=== PATIENT | female | born 1930 | race Two or more races ===

== ENCOUNTER 2017-05-23 15:54 | Inpatient (IN) | payer MEDICARE, OTHER ==
[~2017-05-23] VITALS: Ht 154.9 cm; Wt 73.5 kg
[2017-05-23] MEDS ORDERED: ONDANSETRON 4 MG INJ IV STA (15:56)
[2017-05-23] MEDS ORDERED: morphine 4 MG/ML VIAL IV STA (15:56)
--- NOTE | 2017-05-23 16:33 | RADRPT ---
PROCEDURE: XR Wrist. CLINICAL INDICATION: Fall. Pain and deformity TECHNIQUE: AP, lateral and oblique views of the right wrist were performed. COMPARISON: No prior studies are available for comparison. FINDINGS: Comminuted fracture through the distal radial diaphysis and epiphysis is present with impaction and posterior displacement of the fracture fragments as well as suspected intra-articular extension into the radiocarpal joint. Additional displaced fracture of the distal ulna metaphysis is present, the ulna head anterior to the distal ulnar shaft. The carpal bones appear grossly intact. The bones appe ar well mineralized. Diffuse soft tissue swelling is seen. No radiopaque foreign body is evident. . RPTAT:HJJR IMPRESSION: Acute, closed, comminuted, displaced and impacted distal radius and ulna fractures of the right wris t with likely intra-articular extension into the radiocarpal joint and severe soft tissue swelling. Physician Cinthia Date Time Electronically viewed and signed by Physician Cinthia on 05/23/2017 16:33 /
[2017-05-23] MEDS ORDERED: GABA300C16 PO (16:45)
[2017-05-23] MEDS ORDERED: LORA0.5T PO (16:45)
[2017-05-23] MEDS ORDERED: TRAM-40 PO (16:46)
[2017-05-23] MEDS ORDERED: TIZA2TAB PO (16:47)
[2017-05-23] MEDS ORDERED: LOSA50TA6 PO (16:47)
[2017-05-23] MEDS ORDERED: PANT20TA3 PO (16:48)
[2017-05-23] MEDS ORDERED: ATOR10TA65 PO (16:48)
[2017-05-23] MEDS ORDERED: DULO30CA47 PO (16:49)
[2017-05-23] MEDS ORDERED: MIRT7.5T8 PO (16:49)
[2017-05-23] MEDS ORDERED: KETAMINE 500 MG INJ ONE (18:27)
[2017-05-23] MEDS ORDERED: PROPOFOL 20 ML ONE (18:28)
[2017-05-23] MEDS ORDERED: SOD CHLORIDE 0.9% 500 ML IV STA (18:34)
[2017-05-23] MEDS ORDERED: PROPOFOL 200 MG INJ IV ONE (19:00)
[2017-05-23] MEDS ORDERED: KETAMINE 500 MG INJ IV ONE (19:00)
[2017-05-23] MEDS ORDERED: morphine 10 MG INJ IV ONE (19:00)
[2017-05-23 19:13] LABS: BASOPHILS % 0.3 % (0.0-2.0); HEMOGLOBIN 13.7 g/dl (12.0-16.0); LYMPHOCYTES # 1.5 10^3/ul (0.8-2.9); LYMPHOCYTES % 22.9 % (15.0-51.0); MEAN CORPUSCULAR HEMOGLOBIN 31.8 pg (29.0-33.0); MEAN CORPUSCULAR HGB CONC 32.6 g/dl (32.0-37.0); MEAN CORPUSCULAR VOLUME 97.4 fl (82.0-101.0); MEAN PLATELET VOLUME 10.6 fl (7.4-10.4); MONOCYTE # 0.6 10^3/ul (0.3-0.9); MONOCYTES % 9.4 % (0.0-11.0); NEUTROPHIL # 4.4 10^3/ul (1.6-7.5); NEUTROPHILS % 66.1 % (39.0-77.0); PLATELET COUNT 240 10^3/UL (140-415); RED BLOOD COUNT 4.31 10^6/ul (4.20-5.40); WHITE BLOOD COUNT 6.7 10^3/ul (4.8-10.8)
[2017-05-23] MEDS ORDERED: CEFAZOLIN 1 GM/50 ML (PMX) 50 ML IVPB SCH ×2 (19:30→21:00)
[2017-05-23 19:35] LABS: CALCIUM 10.2 mg/dl (8.4-10.2); CREATININE 1.12 mg/dl (0.44-1.00); POTASSIUM 4.1 mmol/L (3.5-5.1)
[2017-05-23 20:00] VITALS: TEMP 98.9
--- NOTE | 2017-05-23 20:00 | RADRPT ---
PROCEDURE: XR LEFT WRIST. CLINICAL INDICATION: Post reduction left wrist. TECHNIQUE: Three views of the left wrist were obtained. COMPARISON: 05/23/2017. FINDINGS: There has been a marked improvement in alignment of the comminuted intra-articular distal radius and ulnar fractures. There is a scapholunate diastasis likely indicating ligament tear. The bones are o steoporotic. IMPRESSION: 1. Marked improvement in alignment of the distal radius and ulnar fractures. 2. Scapholunate diastasis likely indicating ligament tear. RPTAT: XX .Collin Jimenez MD, MD Date Time Electronically viewed and signed by .Collin Jimenez MD, MD on 05/23/2017 19:59 .T/
[2017-05-23] MEDS ORDERED: ONDANSETRON 4 MG INJ IV PRN ×2 (20:30→21:00)
[2017-05-23] MEDS ORDERED: ACETAMINOPHEN 325 MG TAB PO PRN (20:30)
[2017-05-23] MEDS: DEXTROSE 5%-0.45% NACL 1,000 ML IV SCH (20:32)
--- NOTE | 2017-05-23 20:41 | ERD ---
ER Documentation Chief Complaint Chief Complaint bib ambulance for complaints of right wrist pain s/p fall HPI Elderly female brought in by ambulance after she fell at home when she lost her footing and felt unsteady on her feet. She has lacerations to her right wrist and left forearm with deformity and significant severe pain to her right wrist. Denies having any chest pain or shortness of breath prior to the fall. Does not have pain in any other part of her body. Not hit her head or lose consciousness. ROS All systems reviewed and are negative except as per history of present illness. Medications Home Meds Reported Medications Duloxetine Hcl* (Duloxetine Hcl*) 30 Mg Capsule.dr, 30 MG PO DAILY, #30 CAP 05/23/17 Mirtazapine* (Mirtazapine*) 7.5 Mg Tablet, 7.5 MG PO HS, TAB 05/23/17 Pantoprazole* (Pantoprazole*) 20 Mg Tablet.dr, 20 MG PO DAILY, TAB 05/23/17 Atorvastatin Calcium (Atorvastatin Calcium) 10 Mg Tablet, 10 MG PO QHS, #30 TAB 05/23/17 Tizanidine Hcl* (Tizanidine Hcl*) 2 Mg Tablet, 2 MG PO DAILY Y for SPASTICITY, TAB 05/23/17 Losartan Potassium* (Losartan Potassium*) 50 Mg Tablet, 50 MG PO DAILY, TAB 05/23/17 Tramadol Hcl* (Ultram*) 50 Mg Tablet, 50 MG PO Q6H Y for PAIN, TAB 05/23/17 Gabapentin* (Gabapentin*) 300 Mg Capsule, 300 MG PO DAILY, #60 CAP 05/23/17 Lorazepam* (Lorazepam*) 0.5 Mg Tablet, 0.5 MG PO HS Y for ANXIETY, TAB 05/23/17 Allergies Allergies: Coded Allergies: No Known Allergy (Unverified , 05/23/17) PMhx/Soc Hx Cardiac Disorders: Yes (HTN) Hx Alcohol Use: No Hx Substance Use: No Hx Tobacco Use: No Smoking Status: Never smoker Physical Exam Vitals Vital Signs Date Time Temp Pulse Resp B/P Pulse Ox O2 Delivery O2 Flow Rate FiO2 05/23/17 18:18 99.2 91 15 133/112 96 Room Air 05/23/17 16:08 98.0 96 15 204/102 92 Physical Exam Const: [] Moderate distress Head: Atraumatic Eyes: Normal Conjunctiva ENT: Normal External Ears, Nose and Mouth. Neck: Full range of motion..~ No meningismus. Resp: Clear to auscultation bilaterally Cardio: Regular rate and rhythm, no murmurs Abd: Soft, non tender, non distended. Normal bowel sounds Skin: No petechiae or rashes Back: No midline or flank tenderness Ext: No cyanosis. Right wrist with significant deformity and volar wrist swelling with 2 small lacerations, the more medial laceration does have some active bleeding. The more lateral appears more of his skin tear. She also has a skin tear on her left forearm without any joint pain or bony tenderness of that arm. She has good capillary refill of her fingers and good motor function on both arms. Musculoskeletal survey is negative. Distal foot pulses intact as well Neur: Awake and alert oriented 3, no focal deficits Psych: Normal Mood and Affect Result Diagram: 05/23/17183205/23/171832 Results 24 hrs Laboratory Tests Test 05/23/17 18:33 White Blood Count 6.710^3/ul Red Blood Count 4.3110^6/ul Hemoglobin 13.7g/dl Hematocrit 42.0% Mean Corpuscular Volume 97.4fl Mean Corpuscular Hemoglobin 31.8pg Mean Corpuscular Hemoglobin Concent 32.6g/dl Red Cell Distribution Width 13.0% Platelet Count 01118^3/UL Mean Platelet Volume 10.6fl Neutrophils % 66.1% Lymphocytes % 22.9% Monocytes % 9.4% Eosinophils % 0.0% Basophils % 0.3% Nucleated Red Blood Cells % 0.0/100WBC Neutrophils # 4.410^3/ul Lymphocytes # 1.510^3/ul Monocytes # 0.610^3/ul Eosinophils # 0.010^3/ul Basophils # 0.010^3/ul Nucleated Red Blood Cells # 0.010^3/ul Sodium Level 143mmol/L Potassium Level 4.1mmol/L Chloride Level 106mmol/L Carbon Dioxide Level 26mmol/L Anion Gap 15 Blood Urea Nitrogen 17mg/dl Creatinine 1.12mg/dl Glucose Level 113mg/dl Calcium Level 10.2mg/dl Current Medications Medications (Trade) Dose Ordered Sig/Karel Route PRN Reason Start Time Stop Time Status Last Admin Dose Admin Morphine Sulfate (morphine) 4 mg ONCE STAT IV 05/23/17 15:56 05/23/17 16:00 DC 05/23/17 16:27 Ondansetron HCl (Zofran Inj) 4 mg ONCE STAT IV 05/23/17 15:56 05/23/17 16:00 DC 05/23/17 16:27 Ketamine HCl 500 mg 500 mg STK-MED ONCE .ROUTE 05/23/17 18:27 05/23/17 18:28 DC Propofol (Diprivan) 20 ml @ ud STK-MED ONCE .ROUTE 05/23/17 18:28 05/23/17 18:29 DC Propofol (Diprivan) 80 mg ONCE ONCE IV 05/23/17 19:00 05/23/17 19:01 DC 05/23/17 19:23 Ketamine HCl (Ketalar) 34 mg ONCE ONCE IV 05/23/17 19:00 05/23/17 19:01 DC 05/23/17 19:23 Morphine Sulfate 6 mg 6 mg ONCE ONCE IV 05/23/17 19:00 05/23/17 19:01 DC 05/23/17 19:23 Sodium Chloride 500 ml @ 500 mls/hr Q1H STAT IV 05/23/17 18:34 05/23/17 19:33 DC 05/23/17 19:23 Cefazolin Sodium (Ancef 1 Gm/50 ml (Pmx)) 50 ml @ 100 mls/hr ONCE IVPB 05/23/17 19:30 05/23/17 19:59 DC Procedures/MDM Technically open fracture of right wrist. Reduced in ER by myself. Patient was initially given a formal grams of morphine for pain. She had significant return of pain shortly after and was given 6 mg of morphine as well as Zofran. Was given 500 cc of IV fluid. Preoperatively laboratories were obtained. Urine is still pending she may have infection. She was given a gram of Ancef. Pain is improved after reduction. She does have signs renal insufficiency. She is being admitted to , who I spoke with. I also spoke with Dr. Lisa who will see the patient on consult. Moderate sedation note: Patient was given 40 mg of ketamine and 40 mg of propofol. This provided moderate sedation with the patient was awake but had no pain response to manipulation of her right wrist. She was monitored on entitled CO2, respiratory therapy was present at bedside, pulse ox. She had no changes in her vital signs and emerged well with no complications. Fracture reduction note, right distal radius and ulna fracture: Billet Sawyer held elbow while traction was placed by me by gripping the distal right wrist exaggerating the fracture in the dorsal direction and then pulling up around providing linear traction. Patient was then splinted while I held traction. Traction x-ray was performed prior to the initiation of splinting and showed greatly improved alignment. Patient taught the procedure well with no complications. She had good motor function and sensation after the procedure, Splint application note: Sugar tong splint was applied using fiberglass. Maintain traction more the ER hazmat technician placed the splint. Patient taught the procedure well with no complications. There is good capillary refill and the patient had motor function of her fingers after the procedure no complication Right wrist x-ray interpretation: Fracture of distal radius and ulna with significant shortening intra-articular involvement. Significant soft tissue swelling as well. Departure Diagnosis: Primary Impression: Fracture of distal radius and ulna Additional Impressions: Lacerations of multiple sites of right arm Laceration of left forearm Condition: Stable SAMY UMAÑA DO May 23, 2017 20:41
[2017-05-23] MEDS ORDERED: BISACODYL 10 MG SUPP PR PRN (21:00)
[2017-05-23] MEDS ORDERED: NACL 0.9% 3 ML SYG IV SCH (21:00)
[2017-05-23] MEDS ORDERED: TIZANIDINE 2 MG TAB PO PRN (21:00)
[2017-05-23] MEDS ORDERED: morphine 2 MG INJ IV PRN (21:00)
[2017-05-23] MEDS: CALCIUM/VITAMIN D (500/200) TAB GTB SCH (21:00)
[2017-05-23] MEDS ORDERED: traMADol 50 MG TAB PO PRN (21:00)
[2017-05-23] MEDS ORDERED: DOCUSATE SODIUM 100 MG CAP PO PRN (21:00)
[2017-05-23] MEDS ORDERED: MAGNESIUM HYDROXIDE 30ML CUP PO PRN (21:00)
--- NOTE | 2017-05-23 21:22 | HP ---
Date/Time of Note Date/Time of Note DATE: 05/23/17 TIME: 21:15 Assessment/Plan VTE Prophylaxis VTE Prophylaxis Intervention: ambulation Lines/Catheters IV Catheter Type (from Nrsg): Peripheral IV Central line still needed: No Urinary Cath still in place: No Reason Cath still needed: other (indicate) (pre-op for open right wrist fracture) Assessment/Plan Problems: (1) Fracture of distal radius and ulna Status: Acute Comment: Pain management IV fluid for hydration since she is NPO for now. Fall and aspiration precaution. Ancef given since it is open wound with fracture She is low to moderate risk for cardiovascular event under anesthesia for ORIF for open right wrist fracture. Dr. Mancera is orthopedic unit control clerk Qualifiers: Encounter type: initial encounter Fracture type: open Open fracture type : open type I or II Laterality: right Qualified Code: S52.501B - Type I or II open fracture of distal end of right radius with ulna, initial encounter (2) Open fracture of right wrist Status: Acute Comment: See management as mentioned as above. Qualifiers: Encounter type: initial encounter Qualified Code: S62.101B - Open fracture of right wrist, initial encounter (3) Lacerations of multiple sites of right arm Status: Acute Comment: wound care consultation if indicated after surgery Qualifiers: Encounter type: initial encounter Qualified Code: S41.111A - Laceration of multiple sites of right upper extremity, initial encounter (4) Status post fall Status: Acute Comment: Fall precaution PT evaluation and treatment. case management for discharge planned social service for home safety (5) Fall with injury Status: Acute Comment: Neurontin /Zanaflex held due to drug induced sleepiness and out her at risk of fall. Qualifiers: Encounter type: initial encounter Qualified Code: W19.XXXA - Fall with injury, initial encounter (6) Depressed affect Status: Chronic Comment: Prozac and Remeron to be continued. (7) GERD (gastroesophageal reflux disease) Status: Chronic Comment: Protonix held but Pepcid given (8) HTN (hypertension) Status: Chronic Comment: Losartan resumed and hydralazine given if SBP>160 or DBP>110 Qualifiers: Hypertension type: essential hypertension Qualified Code: I10 - Essential hypertension (9) Hyperlipidemia Status: Chronic Comment: Lipitor to be continued (10) Peripheral neuropathy Status: Chronic Comment: Kelso give for moderate pain. Fall precaution ambulate with assistance. PT treatment for OA knee pain Qualifiers: Peripheral neuropathy type: polyneuropathy, other Qualified Code: G62.89 - Other polyneuropathy (11) Anxiety Status: Chronic Comment: Ativan given if indicated. (12) Insomnia Status: Chronic Comment: Ativan resumed Qualifiers: Insomnia type: primary Qualified Code: F51.01 - Primary insomnia Cont'd Hospitalization Reason: Open right colles fracture requiring ORIF by Dr. Mancera HPI/ROS Admit Date/Time Admit Date/Time 05/23/2017 Hx of Present Illness This is a 86 years old Greek elderly female brought in by ambulance after she fell at home when she lost her footing and felt unsteady on her feet. She has lacerations to her right wrist and left forearm with deformity and significant severe pain to her right wrist. The pain was 10/10 in intensity. She has limitation of range of motion of right wrist due to Colles fracture . No chest pain nor short of breath. No fever nor chill. No headache .No dizziness and lightheadedness prior to the fall. She does not have pain in any other part of her body except right wrist area. Not hit her head or lose consciousness. ROS Constitutional: No chills, No diaphoresis, No disoriented, No fatigue, No febrile, No improved, No nausea, No no complaints, No other, No poor po, No weight change Eyes: No discharge, No no complaints, No other, No pain, No redness, No visual change ENT: No bleeding, No congestion, No discharge, No dysphagia, No no complaints, No other, No pain, No sore throat Respiratory: No cough, No no complaints, No other, No pain, No pleuritic pain, No shortness of breath, No sputum, No wheezing Cardiovascular: No chest pain, No edema, No lightheadedness, No no complaints, No orthopenea, No other, No palpitations, No paroxysmal nocturnal dyspnea Gastrointestinal: No blood, No constipation, No decreased appetite, No diarrhea , No flatus, No nausea, No no complaints, No other, No pain, No passing stool, No vomiting Genitourinary: No bleeding, No discharge, No dysuria, No flank pain, No hematuria, No no complaints, No other Musculoskeletal: bone/joint pain (right wrist pain/right wirst swollen), swelling, No back pain, No neck pain, No other, No restricted range of motion Skin: laceration (ans open wound over right wirst area), No bruising, No erythema, No no complaints, No other, No pruritis, No rash, No skin lesions Neurologic: No confusion, No dizziness, No focal-weakness, No headache, No no complaints, No other, No seizure, No syncope Endocrine: No dry skin, No no complaints, No other, No polydypsia, No polyuria , No temp intolerance, No weight change Lymphatic: No adenopathy, No lymphadema, No no complaints, No other, No tender nodes Psychological: No anxiety, No confusion, No depression, No nl mood/affect, No no complaints, No other, No suicidal PMH/Family/Social Past Medical History Medical History: GERD, high cholesterol, hypertension, hypothyroid, other (OA knees) Past Surgical History Past Surgical Hx: no surgical history Family History Significant Family History: no pertinent family hx Social History Alcohol Use: none Smoking Status: Never smoker Drug Use: none Exam/Review of Systems Vital Signs Vitals Vital Signs Date Time Temp Pulse Resp B/P Pulse Ox O2 Delivery O2 Flow Rate FiO2 05/23/17 18:18 99.2 91 15 133/112 96 Room Air Exam Constitutional: alert, oriented, well developed, No distress, No frail, No non-verbal, No other Psych: nl mood/affect, no complaints, No anxiety, No confusion, No depression, No other, No suicidal Head: atraumatic, normocephalic, No hematomas, No lacerations, No other Eyes: EOMI, PERRL, nl conjunctiva, nl lids, nl sclera, No fundi, disc, No icteric, No other ENMT: nl external ears & nose, nl lips & teeth, nl nasal mucosa & septum, No intubated, No mucosa pink and moist, No other, No tympanic membranes Neck: non-tender, supple, No bruits, No jvd, No masses, No nuchal rigidity, No other, No thyromegaly Respiratory: clear to auscultation, normal air movement, No congested cough, No crackles/rales, No diminished breath sounds, No intercostal retraction, No labored breathing, No other, No respirations, No tactile fremitus, No wheezing Cardiovascular: nl pulses, regular rate and rhythm, No S3, No S4, No bruits, No diastolic murmur, No edema, No gallop, No irregular rhythm, No jugular venous distention (JVD), No murmurs/extra sounds, No other, No rub, No systolic murmur Gastrointestinal: nl liver, spleen, non-tender, soft, No ascites, No bowel sounds, No distended, No firm, No hepatomegaly, No mass , No other, No rebound or guarding, No splenomegaly, No surgical scars, No tender Musculoskeletal: joint tenderness (over right wrist area S/P closed reduction at ER by Dr. Orozco), swelling (of right wrist joint) Neurological: TYPEWRITER ASSEMBLY AND PARTS INSPECTOR II-XII intact, nl mental status, nl speech, No DTR's symmetric, No confused, No focal weakness, No lethargic, No nl strength, No numbness, No other, No reflexes, No unresponsive Skin: nl turgor, rash or lesions, No diaphoresis, No ecchymosis, No laceration, No other, No puncture Lymph: No enlarged, No nl lymph nodes, No nontender, No other Labs Result Diagram: 05/23/17183205/23/171832 Medications Medications Current Medications Atorvastatin Calcium (Lipitor) 10 mg QHS PO ; Start 05/23/17 at 21:00; Status UNV Duloxetine HCl (Cymbalta) 30 mg DAILY PO ; Start 05/24/17 at 09:00; Status UNV Lorazepam (Ativan) 0.5 mg HS PRN PO ANXIETY; Start 05/23/17 at 21:00 Losartan Potassium (Cozaar) 50 mg DAILY PO ; Start 05/24/17 at 09:00; Status UNV Mirtazapine (Remeron) 7.5 mg HS PO ; Start 05/23/17 at 21:00; Status UNV Pantoprazole Sodium 20 mg 20 mg DAILY PO ; Start 05/24/17 at 09:00; Status UNV Dextrose/Sodium Chloride (D5-1/2ns) 1,000 ml @ 80 mls/hr G84H50G IV ; Start at 20:32 Ondansetron HCl (Zofran Inj) 4 mg Q6H PRN IV NAUSEA AND/OR VOMITING; Start 05/23/17 at 21:00 Acetaminophen/ Hydrocodone Bitart (Kelso (5/325)) 1 tab Q6H PRN PO MODERATE PAIN LEVEL 4-6; Start 05/23/17 at 21:00 Docusate Sodium (Colace) 100 mg Q12H PRN PO CONSTIPATION; Start 05/23/17 at 21: 00; Status UNV Magnesium Hydroxide (Milk Of Mag) 30 ml DAILY PRN PO CONSTIPATION; Start at 21:00; Status UNV Bisacodyl (Dulcolax Supp) 10 mg DAILY PRN W[place] CONSTIPATION; Start 05/23/17 at 21 :00 Famotidine (Pepcid Iv) 20 mg DAILY IV ; Start 05/23/17 at 21:00 Calcium/Vitamin D (Oyster Shell/ Vit-D (500/200)) 1 tab BID GTB ; Start at 21:00; Status UNV Morphine Sulfate 1 mg 1 mg Q4H PRN IV SEVERE PAIN LEVEL 7-10; Start 05/23/17 at 21:00 Cefazolin Sodium (Ancef 1 Gm/50 ml (Pmx)) 50 ml @ 100 mls/hr Q12 IVPB ; Start 05/23/17 at 21:00 Copies To: CC: ANGEL LUIS MANCERA MD, NARUCHON MD May 23, 2017 21:22
[2017-05-23] MEDS: ATORVASTATIN 10 MG TAB PO SCH (21:56)
[2017-05-23] MEDS: MIRTAZAPINE 15 MG TAB PO SCH (21:56)
[2017-05-23] MEDS: FAMOTIDINE 20 MG INJ IV SCH (21:59)
[2017-05-23] MEDS: HYDROCODONE/APAP (5/325) TAB PO PRN (22:00)
[2017-05-23 22:46] LABS: INR 1.06; PROTIME 13.9 Sec (11.9-14.9); PT RATIO 1.1
[2017-05-23 22:47] LABS: PARTIAL THROMBOPLASTIN TIME 33.5 Sec (25.0-35.0)
[2017-05-23 23:05] VITALS: BP 147/88; PULSE 92; RESP 18; Ht 154.9 cm; Wt 73.5 kg
[2017-05-23 23:12] LABS: ADD UMIC YES; UR ASCORBIC ACID 20 mg/dL (NEGATIVE); UR BILIRUBIN (Dip) NEGATIVE (NEGATIVE); UR BLOOD (Dip) 2+ mg/dL (NEGATIVE); UR CLARITY CLEAR (CLEAR); UR COLOR YELLOW (YELLOW); UR GLUCOSE (Dip) NEGATIVE (NEGATIVE); UR KETONES (Dip) TRACE mg/dL (NEGATIVE); UR LEUKOCYTE ESTERASE (Dip) NEGATIVE Leu/ul (NEGATIVE); UR NITRITE (Dip) NEGATIVE (NEGATIVE); UR RBC 30 /HPF (0-5); UR SPECIFIC GRAVITY (Dip) 1.038 (1.003-1.030); UR SQUAMOUS EPITHELIAL CELL FEW /HPF (FEW); UR TOTAL PROTEIN (Dip) 1+ mg/dl (NEGATIVE); UR UROBILINOGEN (Dip) NEGATIVE (NEGATIVE)
[2017-05-23] MEDS: LORAZEPAM 0.5 MG TAB PO PRN (23:42)
[2017-05-24] VITALS (7 sets, daily range): BP systolic 136–196; BP diastolic 70–92; PULSE 89–101; RESP 16–18
[2017-05-24 06:23] LABS: BASOPHILS % 0.2 % (0.0-2.0); HEMATOCRIT 39.1 % (37.0-47.0); HEMOGLOBIN 12.6 g/dl (12.0-16.0); MEAN CORPUSCULAR HEMOGLOBIN 31.7 pg (29.0-33.0); MEAN CORPUSCULAR HGB CONC 32.2 g/dl (32.0-37.0); MEAN CORPUSCULAR VOLUME 98.5 fl (82.0-101.0); MEAN PLATELET VOLUME 11.4 fl (7.4-10.4); MONOCYTE # 0.4 10^3/ul (0.3-0.9); MONOCYTES % 4.4 % (0.0-11.0); NEUTROPHIL # 7.5 10^3/ul (1.6-7.5); NEUTROPHILS % 83.8 % (39.0-77.0); PLATELET COUNT 207 10^3/UL (140-415); RED BLOOD COUNT 3.97 10^6/ul (4.20-5.40); RED CELL DISTRIBUTION WIDTH 12.8 % (11.5-14.5); WHITE BLOOD COUNT 8.9 10^3/ul (4.8-10.8)
[2017-05-24 06:43] LABS: POSITIVE DIFF @See below
[2017-05-24 07:00] LABS: T3 UPTAKE 31.2 % (23.5-40.5)
[2017-05-24] MEDS: DULOXETINE 30 MG CAP DR PO SCH (08:53)
[2017-05-24] MEDS: FAMOTIDINE 20 MG INJ IV SCH (08:54)
[2017-05-24] MEDS: CALCIUM/VITAMIN D (500/200) TAB GTB SCH ×2 (08:55→20:46)
[2017-05-24] MEDS: CEFTRIAXONE 1 GM/50 ML (PMX) 50 ML IVPB SCH (08:59)
[2017-05-24] MEDS ORDERED: GABAPENTIN 300 MG CAP PO SCH (09:00)
[2017-05-24] MEDS ORDERED: hydrALAzine 20 MG INJ IV PRN (09:00)
[2017-05-24] MEDS ORDERED: LOSARTAN 50 MG TAB PO SCH (09:00)
[2017-05-24] MEDS ORDERED: PANTOPRAZOLE SODIUM 20 MG TABEC PO SCH (09:00)
[2017-05-24] MEDS ORDERED: SOD CHLORIDE 0.9% 250 ML IV* ONE (09:39)
--- NOTE | 2017-05-24 10:01 | PN ---
Date/Time of Note Date/Time of Note DATE: 05/24/17 TIME: 09:47 Assessment/Plan VTE Prophylaxis VTE Prophylaxis Intervention: ambulation, anti-embolic stocking Lines/Catheters IV Catheter Type (from Nrsg): Peripheral IV Central line still needed: No Urinary Cath still in place: No Assessment/Plan Problems: (1) Open fracture of right wrist Status: Acute Comment: Dr. Lisa is going to see the patient today and tentative for ORIF tomorrow per Dr. Lisa. I appreciated Dr. Lisa 's service. Pain management as needed. NPO after midnight. Type and screen for 2 Unit PRBCs before surgery tomorrow. Qualifiers: Encounter type: initial encounter Qualified Code: S62.101B - Open fracture of right wrist, initial encounter (2) Fall with injury Status: Acute Comment: Fall precaution Qualifiers: Encounter type: subsequent encounter Qualified Code: W19.XXXD - Fall with injury, subsequent encounter (3) UTI (urinary tract infection) Status: Acute Comment: Urine culture result pending Rocephin given for simple UTI. Ancef stopped. Delayed Temple catheter insertion till tomorrow. Qualifiers: Urinary tract infection type: acute cystitis Hematuria presence: with hematuria Qualified Code: N30.01 - Acute cystitis with hematuria (4) Dehydration Status: Acute Comment: Encourage oral fluid Increase IV fluid to 100 cc/hr. She can eat low salt diet today and the NPO after midnight except meds and sip of water. AM CMP repeated (5) HTN (hypertension) Status: Chronic Comment: Losartan to be continued . Toprol XL to prevent cardiac event as pre op medication. IV Hydralazine given for SBP>160 or DBP>110 Qualifiers: Hypertension type: essential hypertension Qualified Code: I10 - Essential hypertension (6) Hyperlipidemia Status: Chronic Comment: Lipitor to be continued (7) GERD (gastroesophageal reflux disease) Status: Chronic Comment: IV Pepcid since she is going for surgery and then after surgery,we can change back to oral Protonix. (8) Peripheral neuropathy Status: Chronic Comment: Supportive care. Neurontin discontinued due to altered mental status and put her at risk of fall Qualifiers: Peripheral neuropathy type: polyneuropathy, other Qualified Code: G62.89 - Other polyneuropathy (9) Depressed affect Status: Chronic Comment: Prozac to be continued. (10) Anxiety Status: Chronic Comment: Ativan as needed (11) Insomnia Status: Chronic Comment: Ativan as home med given. Qualifiers: Insomnia type: primary Qualified Code: F51.01 - Primary insomnia Cont'd Hospitalization Reason: She will og for ORTIF tomorrow .She is medically clear for ORIF . Subjective 24 Hr Interval Summary Free Text/Dictation She has tha doing better. No active right wrist pain. She denied any fever nor chill. No chest pain nor short f breath. No urgency but frequency. No dizziness or lightheadedness when walking to the restroom. No productive cough . No diarrhea or constipation. No headache or blurred vision. Constitutional: improved, no complaints, No chills, No diaphoresis, No disoriented, No febrile, No other, No poor po, No requiring IVF, No requiring O2 Eyes: No discharge, No no complaints, No other, No pain, No redness, No visual change ENT: No bleeding, No congestion, No discharge, No dysphagia, No no complaints, No other, No pain, No sore throat Respiratory: No cough, No no complaints, No other, No pain, No pleuritic pain, No shortness of breath, No sputum, No wheezing Cardiovascular: No chest pain, No edema, No lightheadedness, No no complaints, No orthopenea, No other, No palpitations, No paroxysmal nocturnal dyspnea Gastrointestinal: No blood, No constipation, No decreased appetite, No diarrhea , No flatus, No nausea, No no complaints, No other, No pain, No passing stool, No vomiting Genitourinary: No bleeding, No discharge, No dysuria, No flank pain, No hematuria, No no complaints, No other Musculoskeletal: No back pain, No bone/joint pain, No neck pain, No no complaints, No other, No restricted range of motion, No swelling Skin: No bruising, No erythema, No laceration, No no complaints, No other, No pruritis, No rash, No skin lesions Neurologic: No confusion, No dizziness, No focal-weakness, No headache, No no complaints, No other, No seizure, No syncope Endocrine: No dry skin, No no complaints, No other, No polydypsia, No polyuria , No temp intolerance Lymphatic: No adenopathy, No lymphadema, No no complaints, No other, No tender nodes Psychological: No anxiety, No confusion, No depression, No nl mood/affect, No no complaints, No other, No suicidal Exam/Review of Systems Vital Signs Vitals Vital Signs Date Time Temp Pulse Resp B/P Pulse Ox O2 Delivery O2 Flow Rate FiO2 05/24/17 08:39 99.1 92 16 164/83 92 Room Air 05/23/17 19:20 4.0 33 Intake and Output 05/23/17 05/23/17 05/24/17 15:00 23:00 07:00 Intake Total 550 ml 680 ml Balance 550 ml 680 ml Exam Constitutional: alert, oriented, well developed Psych: nl mood/affect, no complaints Head: atraumatic, normocephalic Eyes: EOMI, PERRL, nl conjunctiva, nl lids, nl sclera ENMT: nl external ears & nose, nl lips & teeth, other (dry mouth and oral musoca) Neck: bruits, jvd, masses, non-tender, nuchal rigidity, other, supple, thyromegaly Respiratory: clear to auscultation, normal air movement, No congested cough, No crackles/rales, No diminished breath sounds, No intercostal retraction, No labored breathing, No other, No respirations, No tactile fremitus, No wheezing Cardiovascular: nl pulses, regular rate and rhythm, No S3, No S4, No bruits, No diastolic murmur, No edema, No gallop, No irregular rhythm, No jugular venous distention (JVD), No murmurs/extra sounds, No other, No rub, No systolic murmur Gastrointestinal: nl liver, spleen, non-tender, soft, No ascites, No bowel sounds, No distended, No firm, No hepatomegaly, No mass , No other, No rebound or guarding, No splenomegaly, No surgical scars, No tender Musculoskeletal: swelling (deformity of right distal ulnar and radius but she has cast in place.), No joint tenderness, No muscle tone, No muscle weakness, No nl extremities to inspection, No nl gait and stance, No other, No range of motion, No spine non -tender Results Result Diagram: 05/24/17 0505 05/23/17 2643 Results 24 hrs Laboratory Tests Test 05/23/17 16:33 05/23/17 18:33 05/23/17 22:48 05/24/17 05:05 Prothrombin Time 13.9 Prothrombin Time Ratio 1.1 INR International Normalized Ratio 1.06 Activated Partial Thromboplast Time 33.5 White Blood Count 6.7 8.9 # Red Blood Count 4.31 3.97 L Hemoglobin 13.7 12.6 Hematocrit 42.0 39.1 Mean Corpuscular Volume 97.4 98.5 Mean Corpuscular Hemoglobin 31.8 31.7 Mean Corpuscular Hemoglobin Concent 32.6 32.2 Red Cell Distribution Width 13.0 12.8 Platelet Count 240 207 Mean Platelet Volume 10.6 H 11.4 H Neutrophils % 66.1 83.8 H Lymphocytes % 22.9 11.0 L Monocytes % 9.4 4.4 Eosinophils % 0.0 0.0 Basophils % 0.3 0.2 Nucleated Red Blood Cells % 0.0 0.0 Neutrophils # 4.4 7.5 Lymphocytes # 1.5 1.0 Monocytes # 0.6 0.4 Eosinophils # 0.0 0.0 Basophils # 0.0 0.0 Nucleated Red Blood Cells # 0.0 0.0 Sodium Level 143 Potassium Level 4.1 Chloride Level 106 Carbon Dioxide Level 26 Anion Gap 15 Blood Urea Nitrogen 17 Creatinine 1.12 H Glucose Level 113 Calcium Level 10.2 Urine Color YELLOW Urine Clarity CLEAR Urine pH 5.0 Urine Specific [place] 1.038 H Urine Ketones TRACE A Urine Nitrite NEGATIVE Urine Bilirubin NEGATIVE Urine Urobilinogen NEGATIVE Urine Leukocyte Esterase NEGATIVE Urine Microscopic RBC 30 H Urine Microscopic WBC 4 Urine Squamous Epithelial Cells FEW Urine Hemoglobin 2+ H Urine Glucose NEGATIVE Urine Total Protein 1+ H Magnesium Level 2.0 Free Thyroxine Index 1.62 Thyroxine (T4) 5.2 L Triiodothyronine (T3) Uptake 31.2 Imaging Free Text/Dictation Laboratory Tests Test 05/23/17 16:33 05/23/17 18:33 05/23/17 22:48 05/24/17 05:05 Prothrombin Time 13.9Sec Prothrombin Time Ratio 1.1 INR International Normalized Ratio 1.06 Activated Partial Thromboplast Time 33.5Sec White Blood Count 6.710^3/ul 8.910^3/ul Red Blood Count 4.3110^6/ul 3.9710^6/ul Hemoglobin 13.7g/dl 12.6g/dl Hematocrit 42.0% 39.1% Mean Corpuscular Volume 97.4fl 98.5fl Mean Corpuscular Hemoglobin 31.8pg 31.7pg Mean Corpuscular Hemoglobin Concent 32.6g/dl 32.2g/dl Red Cell Distribution Width 13.0% 12.8% Platelet Count 88032^3/UL 60337^3/UL Mean Platelet Volume 10.6fl 11.4fl Neutrophils % 66.1% 83.8% Lymphocytes % 22.9% 11.0% Monocytes % 9.4% 4.4% Eosinophils % 0.0% 0.0% Basophils % 0.3% 0.2% Nucleated Red Blood Cells % 0.0/100WBC 0.0/100WBC Neutrophils # 4.410^3/ul 7.510^3/ul Lymphocytes # 1.510^3/ul 1.010^3/ul Monocytes # 0.610^3/ul 0.410^3/ul Eosinophils # 0.010^3/ul 0.010^3/ul Basophils # 0.010^3/ul 0.010^3/ul Nucleated Red Blood Cells # 0.010^3/ul 0.010^3/ul Sodium Level 143mmol/L Potassium Level 4.1mmol/L Chloride Level 106mmol/L Carbon Dioxide Level 26mmol/L Anion Gap 15 Blood Urea Nitrogen 17mg/dl Creatinine 1.12mg/dl Glucose Level 113mg/dl Calcium Level 10.2mg/dl Urine Color YELLOW Urine Clarity CLEAR Urine pH 5.0 Urine Specific [place] 1.038 Urine Ketones TRACEmg/dL Urine Nitrite NEGATIVEmg/dL Urine Bilirubin NEGATIVEmg/dL Urine Urobilinogen NEGATIVEmg/dL Urine Leukocyte Esterase NEGATIVELeu/ul Urine Microscopic RBC 30/HPF Urine Microscopic WBC 4/HPF Urine Squamous Epithelial Cells FEW/HPF Urine Hemoglobin 2+mg/dL Urine Glucose NEGATIVEmg/dL Urine Total Protein 1+mg/dl Magnesium Level 2.0mg/dl Free Thyroxine Index 1.62ug/ml Thyroxine (T4) 5.2ug/dl Triiodothyronine (T3) Uptake 31.2% Current Medications Medications (Trade) Dose Ordered Sig/Karel Route PRN Reason Start Time Stop Time Status Last Admin Dose Admin Morphine Sulfate (morphine) 4 mg ONCE STAT IV 05/23/17 15:56 05/23/17 16:00 DC 05/23/17 16:27 4 MG Ondansetron HCl (Zofran Inj) 4 mg ONCE STAT IV 05/23/17 15:56 05/23/17 16:00 DC 05/23/17 16:27 4 MG Ketamine HCl 500 mg 500 mg STK-MED ONCE .ROUTE 05/23/17 18:27 05/23/17 18:28 DC Propofol (Diprivan) 20 ml @ ud STK-MED ONCE .ROUTE 05/23/17 18:28 05/23/17 18:29 DC Propofol (Diprivan) 80 mg ONCE ONCE IV 05/23/17 19:00 05/23/17 19:01 DC 05/23/17 19:23 80 MG Ketamine HCl (Ketalar) 34 mg ONCE ONCE IV 05/23/17 19:00 05/23/17 19:01 DC 05/23/17 19:23 34 MG Morphine Sulfate 6 mg 6 mg ONCE ONCE IV 05/23/17 19:00 05/23/17 19:01 DC 05/23/17 19:23 6 MG Sodium Chloride 500 ml @ 500 mls/hr Q1H STAT IV 05/23/17 18:34 05/23/17 19:33 DC 05/23/17 19:23 500 MLS/HR Cefazolin Sodium (Ancef 1 Gm/50 ml (Pmx)) 50 ml @ 100 mls/hr ONCE IVPB 05/23/17 19:30 05/23/17 19:59 DC Atorvastatin Calcium (Lipitor) 10 mg QHS PO 05/23/17 21:00 05/23/17 21:56 10 MG Duloxetine HCl (Cymbalta) 30 mg DAILY PO 05/24/17 09:00 05/24/17 08:53 30 MG Gabapentin (Neurontin) 300 mg DAILY PO 05/24/17 09:00 05/24/17 09:00 DC Lorazepam (Ativan) 0.5 mg HS PRN PO ANXIETY 05/23/17 21:00 05/23/17 23:42 0.5 MG Losartan Potassium (Cozaar) 50 mg DAILY PO 05/24/17 09:00 05/24/17 08:54 50 MG Mirtazapine (Remeron) 7.5 mg HS PO 05/23/17 21:00 05/23/17 21:56 7.5 MG Pantoprazole Sodium (Protonix) 20 mg DAILY PO 05/24/17 09:00 05/24/17 08:53 20 MG Tizanidine HCl (Zanaflex) 2 mg DAILY PRN PO SPASTICITY 05/23/17 21:00 05/23/17 21:00 DC Tramadol HCl (Ultram) 50 mg Q6H PRN PO PAIN 05/23/17 21:00 05/23/17 21:00 DC Ondansetron HCl (Zofran Inj) 4 mg BRIDGE ORDER PRN IV NAUSEA AND/OR VOMITING 05/23/17 20:30 05/24/17 20:29 Acetaminophen 650 mg 650 mg ER BRIDGE PRN PO MILD PAIN/FEVER 05/23/17 20:30 05/24/17 20:29 Dextrose/Sodium Chloride (D5-1/2ns) 1,000 ml @ 100 mls/hr Q10H IV 05/23/17 20:32 05/23/17 20:32 80 MLS/HR IV Flush (NS 3 ml) 3 ml PER PROTOCOL IV 05/23/17 21:00 Ondansetron HCl (Zofran Inj) 4 mg Q6H PRN IV NAUSEA AND/OR VOMITING 05/23/17 21:00 Acetaminophen/ Hydrocodone Bitart ([place] (5/325)) 1 tab Q6H PRN PO MODERATE PAIN LEVEL 4-6 05/23/17 21:00 05/23/17 22:00 1 TAB Docusate Sodium (Colace) 100 mg Q12H PRN PO CONSTIPATION 05/23/17 21:00 Magnesium Hydroxide (Milk Of Mag) 30 ml DAILY PRN PO CONSTIPATION 05/23/17 21:00 Bisacodyl (Dulcolax Supp) [address] CONSTIPATION 05/23/17 21:00 Famotidine (Pepcid Iv) 20 mg DAILY IV 05/23/17 21:00 05/24/17 08:54 20 MG Calcium/Vitamin D ([place]yster [place]/ Vit-D (500/200)) 1 tab BID GTB 05/23/17 21:00 05/24/17 08:55 1 TAB Morphine Sulfate 1 mg 1 mg Q4H PRN IV SEVERE PAIN LEVEL 7-10 05/23/17 21:00 Cefazolin Sodium (Ancef 1 Gm/50 ml (Pmx)) 50 ml @ 100 mls/hr Q12 IVPB 05/23/17 21:00 05/24/17 08:41 DC 05/23/17 21:36 100 MLS/HR Hydralazine HCl 10 mg 10 mg Q6H PRN IV ELEVATED BLOOD PRESSURE 05/24/17 09:00 Ceftriaxone Sodium 50 ml @ 100 mls/hr Q24H IVPB 05/24/17 09:00 05/24/17 08:59 100 MLS/HR Sodium Chloride (NS) 250 ml @ 0 mls/hr Q0M ONCE IV* 05/24/17 09:39 05/24/17 09:40 UNV Medications Medications Current Medications Atorvastatin Calcium (Lipitor) 10 mg QHS PO Last administered on 05/23/17 21: 56; Admin Dose 10 MG; Start 05/23/17 at 21:00 Duloxetine HCl (Cymbalta) 30 mg DAILY PO Last administered on 05/24/17 08:53; Admin Dose 30 MG; Start 05/24/17 at 09:00 Lorazepam (Ativan) 0.5 mg HS PRN PO ANXIETY Last administered on 05/23/17 23: 42; Admin Dose 0.5 MG; Start 05/23/17 at 21:00 Losartan Potassium (Cozaar) 50 mg DAILY PO Last administered on 05/24/17 08:54 ; Admin Dose 50 MG; Start 05/24/17 at 09:00 Mirtazapine (Remeron) 7.5 mg HS PO Last administered on 05/23/17 21:56; Admin Dose 7.5 MG; Start 05/23/17 at 21:00 Pantoprazole Sodium 20 mg 20 mg DAILY PO Last administered on 05/24/17 08:53; Admin Dose 20 MG; Start 05/24/17 at 09:00 Dextrose/Sodium Chloride (D5-1/2ns) 1,000 ml @ 100 mls/hr Q10H IV Last administered on 05/23/17 20:32; Admin Dose 80 MLS/HR; Start 05/23/17 at 20:32 Ondansetron HCl (Zofran Inj) 4 mg Q6H PRN IV NAUSEA AND/OR VOMITING; Start 05/23/17 at 21:00 Acetaminophen/ Hydrocodone Bitart ([place] (5/325)) 1 tab Q6H PRN PO MODERATE PAIN LEVEL 4-6 Last administered on 05/23/17 22:00; Admin Dose 1 TAB; Start at 21:00 Docusate Sodium (Colace) 100 mg Q12H PRN PO CONSTIPATION; Start 05/23/17 at 21: 00 Magnesium Hydroxide (Milk Of Mag) 30 ml DAILY PRN PO CONSTIPATION; Start at 21:00 Bisacodyl (Dulcolax Supp) [address] CONSTIPATION; Start 05/23/17 at 21 :00 Famotidine (Pepcid Iv) 20 mg DAILY IV Last administered on 05/24/17 08:54; Admin Dose 20 MG; Start 05/23/17 at 21:00 Calcium/Vitamin D ([place]/ Vit-D (500/200)) 1 tab BID GTB Last administered on 05/24/17 08:55; Admin Dose 1 TAB; Start 05/23/17 at 21:00 Morphine Sulfate (morphine) 1 mg Q4H PRN IV SEVERE PAIN LEVEL 7-10; Start 05/23 at 21:00 Hydralazine HCl 10 mg 10 mg Q6H PRN IV ELEVATED BLOOD PRESSURE; Start 05/24/17 at 09:00 Ceftriaxone Sodium 50 ml @ 100 mls/hr Q24H IVPB Last administered on 08:59; Admin Dose 100 MLS/HR; Start 05/24/17 at 09:00 Sodium Chloride (NS) 250 ml @ 0 mls/hr Q0M ONCE IV* ; Start 05/24/17 at 09:39; Stop 05/24/17 at 09:40; Status CLARK MONROE MD May 24, 2017 09:59
[2017-05-24] MEDS: DEXTROSE 5%-0.45% NACL 1,000 ML IV SCH ×2 (10:08→18:44)
[2017-05-24] MEDS ORDERED: LORAZEPAM 0.5 MG TAB PO PRN (10:30)
[2017-05-24] MEDS: METOPROLOL (XL) 25 MG TAB PO SCH (11:59)
[2017-05-24] MEDS: ACETAMINOPHEN 325 MG TAB PO PRN (16:15)
[2017-05-24] MEDS: ATORVASTATIN 10 MG TAB PO SCH (20:46)
[2017-05-24] MEDS: MIRTAZAPINE 15 MG TAB PO SCH (20:47)
[2017-05-25] VITALS (22 sets, daily range): BP systolic 108–189; BP diastolic 51–91; PULSE 93–106; RESP 17–20
[2017-05-25] MEDS: ACETAMINOPHEN 325 MG TAB PO PRN (01:21)
[2017-05-25 05:26] LABS: BASOPHILS % 0.1 % (0.0-2.0); HEMATOCRIT 36.4 % (37.0-47.0); LYMPHOCYTES # 1.5 10^3/ul (0.8-2.9); LYMPHOCYTES % 10.5 % (15.0-51.0); MEAN CORPUSCULAR HEMOGLOBIN 31.7 pg (29.0-33.0); MEAN CORPUSCULAR VOLUME 96.3 fl (82.0-101.0); MEAN PLATELET VOLUME 10.6 fl (7.4-10.4); MONOCYTE # 1.3 10^3/ul (0.3-0.9); MONOCYTES % 9.6 % (0.0-11.0); NEUTROPHILS % 78.9 % (39.0-77.0); PLATELET COUNT 235 10^3/UL (140-415); RED BLOOD COUNT 3.78 10^6/ul (4.20-5.40); RED CELL DISTRIBUTION WIDTH 13.2 % (11.5-14.5); WHITE BLOOD COUNT 13.9 10^3/ul (4.8-10.8)
[2017-05-25 06:30] LABS: ALBUMIN 3.8 g/dl (3.3-4.9); ALBUMIN/GLOBULIN RATIO 1.4; BILIRUBIN,INDIRECT 0.2 mg/dl (0-1.1); BILIRUBIN,TOTAL 0.2 mg/dl (0.2-1.3); CALCIUM 10.2 mg/dl (8.4-10.2); CREATININE 1.04 mg/dl (0.44-1.00); POTASSIUM 4.5 mmol/L (3.5-5.1); TOTAL PROTEIN 6.5 g/dl (6.1-8.1)
[2017-05-25] MEDS: DEXTROSE 5%-0.45% NACL 1,000 ML IV SCH ×3 (07:36→18:25)
--- NOTE | 2017-05-25 08:02 | RADRPT ---
PROCEDURE: XR Lumbar Spine. CLINICAL INDICATION: S/P fall. Low back pain. TECHNIQUE: 5 views of the lumbar spine are available for review COMPARISON: None available FINDINGS: The normal lumbar lordosis is preserved. Alignment is intact. No acute fracture or dislocation is seen. No radiopaque foreign body is identified. The vertebral body heights are all within normal l imits, with the exception of mild to moderate compression of the L4 vertebral body, chronic. In ludy tion, there is evidence of previous vertebroplasty at the L4 level The intervertebral disk heights a re markedly abnormal. Moderate to severe multilevel discogenic disease and disc space narrowing is i dentified at multiple levels throughout the lumbar spine, most severe at the L3-4 and L4-5 levels. The posterior elements are equally remarkable for facet arthropathy at the L4-5 and L5-S1 levels. O n the frontal view, there is normal alignment. Paraspinous soft tissues are grossly unremarkable. A therosclerotic vascular calcifications are present. IMPRESSION: 1. Advance multilevel discogenic disease and disc space narrowing degenerative enthesopathy through out the spine. 2. Moderate compression fracture of the L4 vertebral body, status post vertebroplasty. 3. Significant posterior element facet arthropathy of the lower lumbar spine. 4. Extensive atherosclerotic vascular calcifications of the aortoiliac system. RPTAT: HMJB .Todd Lopez MD, Date Time Electronically viewed and signed by .Todd Lopez MD, on 05/25/2017 08:02 .B/
[2017-05-25] MEDS: DULOXETINE 30 MG CAP DR PO SCH (09:00)
[2017-05-25] MEDS: CALCIUM/VITAMIN D (500/200) TAB GTB SCH ×2 (09:00→20:26)
[2017-05-25] MEDS: METOPROLOL (XL) 25 MG TAB PO SCH (09:00)
[2017-05-25] MEDS: FAMOTIDINE 20 MG INJ IV SCH (09:00)
[2017-05-25] MEDS: CEFTRIAXONE 1 GM/50 ML (PMX) 50 ML IVPB SCH (09:14)
--- NOTE | 2017-05-25 09:45 | PN ---
Date/Time of Note Date/Time of Note DATE: 05/25/17 TIME: 09:34 Assessment/Plan VTE Prophylaxis VTE Prophylaxis Intervention: ambulation, anti-embolic stocking Lines/Catheters IV Catheter Type (from Nrsg): Peripheral IV Urinary Cath still in place: No Reason Cath still needed: urinary retention Assessment/Plan Problems: (1) Open fracture of right wrist Status: Acute Comment: She is going for ORIF today Dr. Lisa is surgeon. Calcium and Vit D daily given for now on. Qualifiers: Encounter type: initial encounter Qualified Code: S62.101B - Open fracture of right wrist, initial encounter (2) Status post fall Status: Acute Comment: Fall precaution (3) Fall with injury Status: Acute Qualifiers: Encounter type: subsequent encounter Qualified Code: W19.XXXD - Fall with injury, subsequent encounter (4) UTI (urinary tract infection) Status: Acute Comment: Urine culture result pending Rocephin given. Qualifiers: Urinary tract infection type: acute cystitis Hematuria presence: with hematuria Qualified Code: N30.01 - Acute cystitis with hematuria (5) Dehydration Status: Resolved Comment: IV fluid given (6) HTN (hypertension) Status: Chronic Comment: Lopressor and losartan given She can be discharged home today or tomorrow Qualifiers: Hypertension type: essential hypertension Qualified Code: I10 - Essential hypertension (7) Insomnia Status: Chronic Comment: Ativan given for sleep. Qualifiers: Insomnia type: primary Qualified Code: F51.01 - Primary insomnia (8) GERD (gastroesophageal reflux disease) Status: Chronic Comment: IV Pepcid (9) Depressed affect Status: Chronic Comment: Prozac and Remeron to be resumed after surgery (10) Anxiety Status: Chronic Comment: Ativan given as needed (11) Peripheral neuropathy Status: Chronic Comment: supportive care Neurontin stopped since it caused the fall injury. Qualifiers: Peripheral neuropathy type: polyneuropathy, other Qualified Code: G62.89 - Other polyneuropathy (12) Hyperlipidemia Status: Chronic Comment: Lipitor resumed after surgery. Qualifiers: Hyperlipidemia type: unspecified Qualified Code: E78.5 - Hyperlipidemia, unspecified hyperlipidemia type Cont'd Hospitalization Reason: She can go home today or tomorrw if she is medically stable after surgery Subjective 24 Hr Interval Summary Free Text/Dictation She has tha doing better. She was sitting on the chair waiting for surgery today .Headache was resolved. She seemed to be calm and happy today. She was not having good sleep but she was not upset about hard bed . No fever nor chill..No active right wrist pain. She denied any fever nor chill. No chest pain nor short f breath. No urgency nor frequency. No dizziness or lightheadedness when walking to the restroom. No productive cough . No diarrhea or constipation. No blurred vision. Constitutional: improved, No chills, No diaphoresis, No disoriented, No febrile, No no complaints, No other, No poor po, No requiring IVF, No requiring O2 Eyes: No discharge, No no complaints, No other, No pain, No redness, No visual change ENT: No bleeding, No congestion, No discharge, No dysphagia, No no complaints, No other, No pain, No sore throat Respiratory: No cough, No no complaints, No other, No pain, No pleuritic pain, No shortness of breath, No sputum, No wheezing Cardiovascular: No chest pain, No edema, No lightheadedness, No no complaints, No orthopenea, No other, No palpitations, No paroxysmal nocturnal dyspnea Gastrointestinal: No blood, No constipation, No decreased appetite, No diarrhea , No flatus, No nausea, No no complaints, No other, No pain, No passing stool, No vomiting Genitourinary: No bleeding, No discharge, No dysuria, No flank pain, No hematuria, No no complaints, No other Musculoskeletal: No back pain, No bone/joint pain, No neck pain, No no complaints, No other, No restricted range of motion, No swelling Skin: No bruising, No erythema, No laceration, No no complaints, No other, No pruritis, No rash, No skin lesions Neurologic: No confusion, No dizziness, No focal-weakness, No headache, No no complaints, No other, No seizure, No syncope Endocrine: No dry skin, No no complaints, No other, No polydypsia, No polyuria , No temp intolerance Lymphatic: No adenopathy, No lymphadema, No no complaints, No other, No tender nodes Psychological: No anxiety, No confusion, No depression, No nl mood/affect, No no complaints, No other, No suicidal Immunologic: No immunodeficiency, No no complaints, No other, No pruritis, No rhinitis, No urticaria Exam/Review of Systems Vital Signs Vitals Vital Signs Date Time Temp Pulse Resp B/P Pulse Ox O2 Delivery O2 Flow Rate FiO2 05/25/17 07:39 98.7 90 20 137/62 96 05/25/17 01:12 Room Air 05/23/17 19:20 4.0 33 Intake and Output 05/24/17 05/24/17 05/25/17 15:00 23:00 07:00 Intake Total 370 ml 1300 ml 300 ml Balance 370 ml 1300 ml 300 ml Exam Constitutional: alert, oriented, well developed, No distress, No frail, No non-verbal, No obese, No other Psych: nl mood/affect, No anxiety, No confusion, No depression, No no complaints, No other, No suicidal Head: atraumatic, normocephalic, No hematomas, No lacerations, No other Eyes: EOMI, nl conjunctiva, nl lids, No PERRL, No fundi, disc, No icteric, No nl sclera, No other ENMT: mucosa pink and moist, nl external ears & nose, nl lips & teeth, nl nasal mucosa & septum, No intubated, No other, No tympanic membranes Neck: non-tender, supple, No bruits, No jvd, No masses, No nuchal rigidity, No other, No thyromegaly Respiratory: clear to auscultation, normal air movement, No congested cough, No crackles/rales, No diminished breath sounds, No intercostal retraction, No labored breathing, No other, No respirations, No tactile fremitus, No wheezing Cardiovascular: nl pulses, regular rate and rhythm, No S3, No S4, No bruits, No diastolic murmur, No edema, No gallop, No irregular rhythm, No jugular venous distention (JVD), No murmurs/extra sounds, No other, No rub, No systolic murmur Gastrointestinal: nl liver, spleen, non-tender, soft, No ascites, No bowel sounds, No distended, No firm, No hepatomegaly, No mass , No other, No rebound or guarding, No splenomegaly, No surgical scars, No tender Musculoskeletal: nl extremities to inspection, nl gait and stance, No joint tenderness, No muscle tone, No muscle weakness, No other, No range of motion, No spine non-tender, No swelling Extremities: normal pulses, other (deformed distal ulnar and radial bones on right arm), No calf tenderness, No clubbing, No cyanosis, No edema, No palpable cord, No pitting pedal edema, No tenderness Neurological: USABILITY ARCHITECT II-XII intact, nl mental status, nl speech, nl strength, No DTR's symmetric, No confused, No focal weakness, No lethargic, No numbness , No other, No reflexes, No unresponsive Skin: No diaphoresis, No ecchymosis, No laceration, No nl turgor, No other, No puncture, No rash or lesions Lymph: nl lymph nodes Results Result Diagram: 05/25/1742205/25/17422 Results 24 hrs Laboratory Tests Test 05/25/17 04:23 White Blood Count 13.9 #H Red Blood Count 3.78 L Hemoglobin 12.0 Hematocrit 36.4 L Mean Corpuscular Volume 96.3 Mean Corpuscular Hemoglobin 31.7 Mean Corpuscular Hemoglobin Concent 33.0 Red Cell Distribution Width 13.2 Platelet Count 235 Mean Platelet Volume 10.6 H Neutrophils % 78.9 H Lymphocytes % 10.5 L Monocytes % 9.6 Eosinophils % 0.0 Basophils % 0.1 Nucleated Red Blood Cells % 0.0 Neutrophils # 11.0 H Lymphocytes # 1.5 Monocytes # 1.3 H Eosinophils # 0.0 Basophils # 0.0 Nucleated Red Blood Cells # 0.0 Sodium Level 143 Potassium Level 4.5 Chloride Level 109 Carbon Dioxide Level 23 Anion Gap 16 Blood Urea Nitrogen 24 H Creatinine 1.04 H Glucose Level 126 Calcium Level 10.2 Total Bilirubin 0.2 Direct Bilirubin 0.00 Indirect Bilirubin 0.2 Aspartate Amino Transf (AST/SGOT) 52 H Alanine Aminotransferase (ALT/SGPT) 38 Alkaline Phosphatase 71 Total Protein 6.5 Albumin 3.8 Globulin 2.70 Albumin/Globulin Ratio 1.40 Imaging Free Text/Dictation ANITA was resolved after hydration. UTI got treated by IV Rocephin. Medications Medications Current Medications Atorvastatin Calcium (Lipitor) 10 mg QHS PO Last administered on 05/24/17 20: 46; Admin Dose 10 MG; Start 05/23/17 at 21:00 Duloxetine HCl (Cymbalta) 30 mg DAILY PO Last administered on 05/24/17 08:53; Admin Dose 30 MG; Start 05/24/17 at 09:00 Lorazepam (Ativan) 0.5 mg HS PRN PO ANXIETY Last administered on 05/23/17 23: 42; Admin Dose 0.5 MG; Start 05/23/17 at 21:00 Mirtazapine 7.5 mg 7.5 mg HS PO Last administered on 05/24/17 20:47; Admin Dose 7.5 MG; Start 05/23/17 at 21:00 Dextrose/Sodium Chloride (D5-1/2ns) 1,000 ml @ 100 mls/hr Q10H IV Last administered on 05/24/17 10:08; Admin Dose 100 MLS/HR; Start 05/23/17 at 20:32 Ondansetron HCl (Zofran Inj) 4 mg Q6H PRN IV NAUSEA AND/OR VOMITING; Start 05/23/17 at 21:00 Acetaminophen/ Hydrocodone Bitart ([place] (5/325)) 1 tab Q6H PRN PO MODERATE PAIN LEVEL 4-6 Last administered on 05/23/17 22:00; Admin Dose 1 TAB; Start at 21:00 Docusate Sodium (Colace) 100 mg Q12H PRN PO CONSTIPATION; Start 05/23/17 at 21: 00 Magnesium Hydroxide (Milk Of Mag) 30 ml DAILY PRN PO CONSTIPATION; Start at 21:00 Bisacodyl (Dulcolax Supp) 10 mg DAILY PRN [place] CONSTIPATION; Start 05/23/17 at 21 :00 Famotidine (Pepcid Iv) 20 mg DAILY IV Last administered on 05/24/17 08:54; Admin Dose 20 MG; Start 05/23/17 at 21:00 Calcium/Vitamin D (Oyster Shell/ Vit-D (500/200)) 1 tab BID GTB Last administered on 05/24/17 20:46; Admin Dose 1 TAB; Start 05/23/17 at 21:00 Morphine Sulfate (morphine) 1 mg Q4H PRN IV SEVERE PAIN LEVEL 7-10; Start 05/23 at 21:00 Hydralazine HCl 10 mg 10 mg Q6H PRN IV ELEVATED BLOOD PRESSURE Last administered on 05/24/17 17:14; Admin Dose 10 MG; Start 05/24/17 at 09:00 Ceftriaxone Sodium (Rocephin) 50 ml @ 100 mls/hr Q24H IVPB Last administered on 05/25/17 09:14; Admin Dose 100 MLS/HR; Start 05/24/17 at 09:00 Metoprolol Succinate (Toprol Xl) 12.5 mg DAILY PO Last administered on 11:59; Admin Dose 12.5 MG; Start 05/24/17 at 11:00 Lorazepam (Ativan) 0.5 mg Q8H PRN PO ANXIETY; Start 05/24/17 at 10:30 Acetaminophen (Tylenol Tab) 650 mg Q4H PRN PO PAIN AND OR ELEVATED TEMP Last administered on 05/25/17 01:21; Admin Dose 650 MG; Start 05/24/17 at 15:30 CLARK SWENSON MD May 25, 2017 09:44
[2017-05-25] MEDS ORDERED: ONDANSETRON 4 MG INJ IV PRN (12:30)
[2017-05-25] MEDS ORDERED: LABETALOL HCL 20MG INJ IV PRN (12:30)
[2017-05-25] MEDS ORDERED: hydrALAzine 20 MG INJ IV PRN (12:30)
[2017-05-25] MEDS ORDERED: HYDROmorphONE (0.2 MG/ML) 10ML SYG IV PRN ×2 (12:30)
[2017-05-25] MEDS ORDERED: MIDAZOLAM 1 MG/ML 2 ML INJ ONE (13:33)
--- NOTE | 2017-05-25 13:41 | RADRPT ---
PROCEDURE: XR Chest. CLINICAL INDICATION: Preop TECHNIQUE: Single frontal chest x-ray. COMPARISON: None. FINDINGS: The lungs are clear. No focal opacification is seen. The cardiomediastinal silhouette is unremarka ble. Aortic atherosclerotic vascular calcifications. The osseous structures are remarkable for adva nced chronic degenerative changes of the shoulder joints bilaterally.. IMPRESSION: 1. Benign chronic age-related senescent changes. 2. No acute cardiopulmonary process. RPTAT: PP .Todd Lopez MD, Date Time Electronically viewed and signed by .Todd Lopez MD, on 05/25/2017 13:41 .B/
[2017-05-25] MEDS ORDERED: ROPIVACAINE 0.5 % 30 ML VIAL ONE (13:47)
[2017-05-25] MEDS ORDERED: PROPOFOL 20 ML ONE (13:57)
[2017-05-25] MEDS ORDERED: LIDOCAINE 2% (SDV) 5 ML INJ ONE (13:57)
[2017-05-25] MEDS ORDERED: ONDANSETRON 4 MG INJ ONE (13:57)
[2017-05-25] MEDS ORDERED: CEFAZOLIN 1 GM INJ ONE (13:57)
[2017-05-25] MEDS ORDERED: DEXAMETHASONE 4 MG/ML 1 ML INJ ONE (13:57)
[2017-05-25] MEDS ORDERED: FAMOTIDINE 20 MG INJ ONE (13:57)
[2017-05-25] MEDS ORDERED: FENTAnyl 50 MCG/ML VIAL ONE (13:58)
[2017-05-25] MEDS ORDERED: EPHEDrine SULFATE 50 MG/5 ML SYG ONE (14:10)
[2017-05-25] MEDS: SOD CHLORIDE 0.9% 1,000 ML IV SCH (14:54)
[2017-05-25] MEDS: CEFAZOLIN 1 GM/50 ML (PMX) 50 ML IVPB SCH (15:00)
[2017-05-25] MEDS ORDERED: NACL 0.9% 3 ML SYG IV SCH (15:00)
--- NOTE | 2017-05-25 15:11 | SIPON ---
Date/Time of Note Date/Time of Note DATE: 05/25/17 TIME: 15:07 Operative Report Preoperative Diagnosis colle's fracture,Rt. wrist Postoperative Diagnosis same as preop Operation/Procedure Performed manipulative reduction and pin fixation Surgeon see signature line greenhouse assistant none Anesthesia: general Estimated blood loss: none Transfusion Required none Specimen none Grafts/Implants nonenone Complications none ANGEL LUIS MANCERA MD May 25, 2017 15:11
--- NOTE | 2017-05-25 15:11 | HPN ---
Date/Time of Note Date/Time of Note DATE: 05/25/17 TIME: 15:11 Interval H&P Admission Note Pt. seen H&P reviewed: No system changes ANGEL LUIS MANCERA MD May 25, 2017 15:11
[2017-05-25] MEDS ORDERED: morphine 2 MG INJ IV PRN (15:30)
[2017-05-25] MEDS ORDERED: HYDROCODONE/APAP (5/325) TAB PO PRN (15:30)
--- NOTE | 2017-05-25 15:47 | RADRPT ---
PROCEDURE: XR Wrist. CLINICAL INDICATION: Pain TECHNIQUE: AP, lateral and oblique views of the right wrist were performed. COMPARISON: No prior studies are available for comparison. FINDINGS: Crossing fixation pins have been placed across a comminuted fracture of the right distal radius. Uln ar styloid fracture is also noted. Fiberglass cast around the right wrist limits bony details. Carpa l bones appear intact. IMPRESSION: Crossing pin fixation pin placement across comminuted fracture of the right distal radius. RPTAT: QQ .Clifford Shelton MD, MD Date Time Electronically viewed and signed by .Clifford Shelton MD, on 05/25/2017 15:47 .L/
--- NOTE | 2017-05-25 16:51 | OPR ---
DATE OF OPERATION: 05/25/2017 PREOPERATIVE DIAGNOSIS: Severely comminuted and displaced Colles fracture of the right wrist. POSTOPERATIVE DIAGNOSIS: Severely comminuted and displaced Colles fracture of the right wrist. PROCEDURE: Manipulative reduction of the severely comminuted Colles fracture, stabilization with the K-wire fixation. ANESTHESIA: General anesthesia. SURGEON: Dr. Dilip Lisa. OPERATIVE PROCEDURE: Under general anesthesia the patient was placed in supine position upon the operating table. First manipulator tip reduction was carried out at bedside under the fluoroscopic monitoring and then the right upper extremity was hanged from IV pole using [place]i finger trap. A 15 pounds of weight was applied to the elbow to maintain the alignment of the fracture in a proper way. After confirming the satisfactory alignment with the x-rays the percutaneous K-wire fixation was carried out by inserting a K-wires both medially and laterally. After confirming satisfactory alignment of the fracture along with the satisfactory position of the K-wires, the K-wire was cut short and bent and the entire right upper extremity was immobilized in a volar splint. The patient tolerated the entire procedure very well and was sent to the recovery room in good condition. Dictated By: Dilip Lisa MD /[email or web address] /Document#: [id number]
--- NOTE | 2017-05-25 17:36 | RADRPT ---
PROCEDURE: Fluoroscopy CLINICAL INDICATION: fixation right distal radial fracture TECHNIQUE: 48.3 seconds fluoroscopic time utilized by Dr. Lisa for procedure. 7 images/sequences of are submitted. COMPARISON: None FINDINGS: Crossing pin fixation of comminuted distal radial fractures demonstrated. Fracture of the distal uln a is also seen. IMPRESSION: Fluoroscopy utilized by Dr. Lisa for procedure Please see procedural report for complete details. RPTAT: QQ .Clifford Shelton MD, MD Date Time Electronically viewed and signed by .Clifford Shelton MD, on 05/25/2017 17:35 .L/
[2017-05-25] MEDS: ATORVASTATIN 10 MG TAB PO SCH (20:26)
[2017-05-25] MEDS: MIRTAZAPINE 15 MG TAB PO SCH (20:27)
[2017-05-25] MEDS: LORAZEPAM 0.5 MG TAB PO PRN (22:02)
[2017-05-26] MEDS ORDERED: ZOLPIDEM 5 MG TAB PO PRN
[2017-05-26] MEDS: SOD CHLORIDE 0.9% 1,000 ML IV SCH ×2 (00:54→10:54)
[2017-05-26] MEDS: CEFAZOLIN 1 GM/50 ML (PMX) 50 ML IVPB SCH (03:35)
[2017-05-26 08:30] VITALS: BP 155/65; RESP 20
[2017-05-26] MEDS: HYDROCODONE/APAP (5/325) TAB PO PRN (10:06)
[2017-05-26] MEDS: CALCIUM/VITAMIN D (500/200) TAB GTB SCH ×2 (10:07→21:38)
[2017-05-26] MEDS: DULOXETINE 30 MG CAP DR PO SCH (10:07)
[2017-05-26] MEDS: FAMOTIDINE 20 MG INJ IV SCH (10:07)
[2017-05-26] MEDS: CEFTRIAXONE 1 GM/50 ML (PMX) 50 ML IVPB SCH (10:09)
[2017-05-26] MEDS: METOPROLOL (XL) 25 MG TAB PO SCH (10:09)
[2017-05-26] MEDS: DEXTROSE 5%-0.45% NACL 1,000 ML IV SCH (11:08)
[2017-05-26] MEDS ORDERED: LORAZEPAM 0.5 MG TAB PO PRN (13:00)
[2017-05-26] MEDS: traMADol-APAP 37.5-325 1 TAB PO PRN ×2 (13:41→21:38)
--- NOTE | 2017-05-26 13:41 | PN ---
Date/Time of Note Date/Time of Note DATE: 05/26/17 TIME: 13:23 Assessment/Plan VTE Prophylaxis VTE Prophylaxis Intervention: SCD's Lines/Catheters IV Catheter Type (from Nrsg): Saline Lock Urinary Cath still in place: No Assessment/Plan Assessment/Plan 86-year-old female with: 1. Severely comminuted and displaced Colles fracture of the right wrist, status post accidental fall at her doctor's office, POD#1 post ORIF. Pain control DC IV fluids Follow-up further recommendations from orthopedic surgery, Dr. Lisa. 2. Insomnia, according to family previous episode of sleeping pill overdose. Patient and family has agreed to decrease her sleeping pills still on the Remeron which is scheduled for her and low-dose Xanax as needed. Discontinue Ambien 3. Episode of delirium, postoperatively, likely secondary to anesthesia and also Ambien. 4. Hypertension: Continue home medications. 5. Possible urinary tract infection, however UA and urine culture both negative , repeat laboratory data, will discontinue Rocephin by the time of discharge. 6. Dehydration: Now euvolemic, discontinue IV fluids, encourage p.o. hydration 7. GERD: Continue Pepcid 8. Hyperlipidemia: Continue medications 9. MDD/Anxiety disorder: Benzodiazepines as needed. 10. Peripheral neuropathy/osteoarthritis: Patient has been getting cortisone shots but also apparently according to previous notes has been on Neurontin which is discontinued at this time to minimize polypharmacy. Prophylaxis: SCDs to lower extremity for DVT prophylaxis and Pepcid for GI prophylaxis. Disposition: Follow-up recommendations from orthopedic surgery Dr. Lisa. Likely discharge home within 24 hours. Subjective 24 Hr Interval Summary Free Text/Dictation Patient remains stable, she is sitting up in the chair, she status post ORIF of right wrist fracture by Dr. Lisa, POD#1 Mental status much improved this morning, patient did have an episode of delirium postoperatively yesterday likely related to anesthesia but also Ambien that was given last night. According to family she does have a history of overdosing sleep medications. She claims that she has Ambien, Xanax, Remeron and a 4th medication prescribed for insomnia. She will be maintained on Remeron scheduled and Xanax as needed. Ambien will be discontinued. Exam/Review of Systems Vital Signs Vitals Vital Signs Date Time Temp Pulse Resp B/P Pulse Ox O2 Delivery O2 Flow Rate FiO2 12/11/17 08:30 99.3 89 20 155/65 100 05/25/17 18:45 Nasal Cannula 2.0 05/23/17 19:20 33 Intake and Output 05/25/17 05/25/17 05/26/17 14:59 22:59 06:59 Intake Total 1050 ml 600 ml 945 ml Output Total 0 ml Balance 1050 ml 600 ml 945 ml Exam Constitutional: alert, oriented, well developed Respiratory: clear to auscultation, normal air movement Cardiovascular: nl pulses, regular rate and rhythm Gastrointestinal: non-tender, soft Musculoskeletal: nl extremities to inspection Extremities: edema (Right upper extremity/forearm, with a noticeable area of erythema/bruising and edema since the fall.), normal pulses, other (No edema, clubbing or cyanosis) Neurological: LIFE ENRICHMENT SPECIALIST II-XII intact, nl mental status, nl speech, other (Strength at baseline) Results Result Diagram: 05/25/1742205/25/17 042 Medications Medications Current Medications Atorvastatin Calcium (Lipitor) 10 mg QHS PO Last administered on 05/25/17 20: 26; Admin Dose 10 MG; Start 05/23/17 at 21:00 Duloxetine HCl (Cymbalta) 30 mg DAILY PO Last administered on 05/26/17 10:07 ; Admin Dose 30 MG; Start 05/24/17 at 09:00 Lorazepam (Ativan) 0.5 mg HS PRN PO INSOMNIA Last administered on 05/25/17 22 :02; Admin Dose 0.5 MG; Start 05/23/17 at 21:00 Mirtazapine 7.5 mg 7.5 mg HS PO Last administered on 05/25/17 20:27; Admin Dose 7.5 MG; Start 05/23/17 at 21:00 Dextrose/Sodium Chloride (D5-1/2ns) 1,000 ml @ 100 mls/hr Q10H IV Last administered on 05/25/17 18:25; Admin Dose 100 MLS/HR; Start 05/23/17 at 20:32 Ondansetron HCl (Zofran Inj) 4 mg Q6H PRN IV NAUSEA AND/OR VOMITING; Start 05/23/17 at 21:00 Acetaminophen/ Hydrocodone Bitart ([place] (5/325)) 1 tab Q6H PRN PO MODERATE PAIN LEVEL 4-6 Last administered on 05/26/17 10:06; Admin Dose 1 TAB; Start 05/23/17 at 21:00 Docusate Sodium (Colace) 100 mg Q12H PRN PO CONSTIPATION; Start 05/23/17 at 21: 00 Magnesium Hydroxide (Milk Of Mag) 30 ml DAILY PRN PO CONSTIPATION; Start at 21:00 Bisacodyl (Dulcolax Supp) 10 mg DAILY PRN [place] CONSTIPATION; Start 05/23/17 at 21 :00 Famotidine (Pepcid Iv) 20 mg DAILY IV Last administered on 05/26/17 10:07; Admin Dose 20 MG; Start 05/23/17 at 21:00 Calcium/Vitamin D (Oyster Shell/ Vit-D (500/200)) 1 tab BID GTB Last administered on 05/26/17 10:07; Admin Dose 1 TAB; Start 05/23/17 at 21:00 Morphine Sulfate (morphine) 1 mg Q4H PRN IV SEVERE PAIN LEVEL 7-10; Start 05/23 at 21:00 Hydralazine HCl 10 mg 10 mg Q6H PRN IV ELEVATED BLOOD PRESSURE Last administered on 05/24/17 17:14; Admin Dose 10 MG; Start 05/24/17 at 09:00 Ceftriaxone Sodium (Rocephin) 50 ml @ 100 mls/hr Q24H IVPB Last administered on 05/26/17 10:09; Admin Dose 100 MLS/HR; Start 05/24/17 at 09:00 Metoprolol Succinate (Toprol Xl) 12.5 mg DAILY PO Last administered on 10:09; Admin Dose 12.5 MG; Start 05/24/17 at 11:00 Lorazepam (Ativan) 0.5 mg Q8H PRN PO ANXIETY; Start 05/24/17 at 10:30 Acetaminophen (Tylenol Tab) 650 mg Q4H PRN PO PAIN AND OR ELEVATED TEMP Last administered on 05/25/17 01:21; Admin Dose 650 MG; Start 05/24/17 at 15:30 Morphine Sulfate (morphine) 2 mg Q2H PRN IV pain; Start 05/25/17 at 15:30 Miscellaneous Information Patients own medicat... BID@ XX ; Start at 10:00 Tramadol HCl (Ultracet) 1 tab Q6H PRN PO PAIN LEVEL 6-10; Start 05/26/17 at 13 :00 Procedures Procedures DATE OF OPERATION: 05/25/2017 PREOPERATIVE DIAGNOSIS: Severely comminuted and displaced Colles fracture of the right wrist. POSTOPERATIVE DIAGNOSIS: Severely comminuted and displaced Colles fracture of the right wrist. PROCEDURE: Manipulative reduction of the severely comminuted Colles fracture, stabilization with the K-wire fixation. ANESTHESIA: General anesthesia. SURGEON: Dr. Dilip Lisa. OPERATIVE PROCEDURE: Under general anesthesia the patient was placed in supine position upon the operating table. First manipulator tip reduction was carried out at bedside under the fluoroscopic monitoring and then the right upper extremity was hanged from IV pole using [place] finger trap. A 15 pounds of weight was applied to the elbow to maintain the alignment of the fracture in a proper way. After confirming the satisfactory alignment with the x-rays the percutaneous K-wire fixation was carried out by inserting a K-wires both medially and laterally. After confirming satisfactory alignment of the fracture along with the satisfactory position of the K-wires, the K-wire was cut short and bent and the entire right upper extremity was immobilized in a volar splint. The patient tolerated the entire procedure very well and was sent to the recovery room in good condition. RYAN MCKEON May 26, 2017 13:34
[2017-05-26 14:12] LABS: BASOPHILS % 0.1 % (0.0-2.0); HEMATOCRIT 39.1 % (37.0-47.0); HEMOGLOBIN 12.6 g/dl (12.0-16.0); LYMPHOCYTES # 1.3 10^3/ul (0.8-2.9); LYMPHOCYTES % 9.3 % (15.0-51.0); MEAN CORPUSCULAR HEMOGLOBIN 31.8 pg (29.0-33.0); MEAN CORPUSCULAR HGB CONC 32.2 g/dl (32.0-37.0); MEAN CORPUSCULAR VOLUME 98.7 fl (82.0-101.0); MEAN PLATELET VOLUME 10.2 fl (7.4-10.4); MONOCYTE # 1.3 10^3/ul (0.3-0.9); MONOCYTES % 9.2 % (0.0-11.0); NEUTROPHIL # 11.3 10^3/ul (1.6-7.5); NEUTROPHILS % 80.1 % (39.0-77.0); PLATELET COUNT 259 10^3/UL (140-415); RED BLOOD COUNT 3.96 10^6/ul (4.20-5.40); RED CELL DISTRIBUTION WIDTH 13.2 % (11.5-14.5); WHITE BLOOD COUNT 14.1 10^3/ul (4.8-10.8)
[2017-05-26 14:45] LABS: CALCIUM 9.7 mg/dl (8.4-10.2); MAGNESIUM 2.2 mg/dl (1.7-2.5)
[2017-05-26 16:30] VITALS: BP 166/74; RESP 20
[2017-05-26 20:36] VITALS: BP 134/66; RESP 20
[2017-05-26] MEDS: MIRTAZAPINE 15 MG TAB PO SCH (21:38)
[2017-05-26] MEDS: ATORVASTATIN 10 MG TAB PO SCH (21:38)
[2017-05-27] MEDS: ALPRAZOLAM 0.25 MG TAB PO PRN ×2 (00:13→21:33)
[2017-05-27 02:54] VITALS: BP 155/67; PULSE 80; RESP 18
--- NOTE | 2017-05-27 05:31 | CONS ---
DATE OF ADMISSION: DATE OF CONSULTATION: HISTORY OF PRESENT ILLNESS: The patient is an 86-year-old female who was admitted on the May,. She was brought into the emergency room because of painful swelling and deformity involving her right wrist. She obviously had a ground-level fall when she lost her footing and fell on the day of her admission. Reportedly, there was a small open wound around the right wrist. However, according to the ER physician, there was no direct communication between the open wound and the fracture. Following a manipulative reduction to improve the alignment in the ER, the entire left wrist was immobilized in a volar splint and the patient was admitted. She is known to have hypercholesterolemia, hypertension, degenerative osteoarthritis of the knees and GERD. Denies any previous history of surgery. PHYSICAL EXAMINATION: My examination revealed an 86-year-old female, who seems to be alert and oriented. EXTREMITIES: Her right wrist and forearm were immobilized in a volar splint. There are no signs of acute neurovascular compromise at this time. X-RAYS: X-rays of the right wrist revealed presence of a rather severely comminuted Colles fracture with improved alignment in post reduction x-rays. IMPRESSION: Severely comminuted Colles fracture of the right wrist. PLAN: To carry out the manipulative reduction under anesthesia and stabilization with percutaneous pin fixation, followed by short-arm cast. Her fracture and recommended mode of treatment, namely close reduction followed by pin fixation, were discussed with the family and the patient, and they were agreeable for the recommended mode of treatment. The patient is tentatively scheduled for recommended manipulative reduction and pin fixation around noon on May 25, 2017. Dictated By: In Sonya Lisa MD /[email or web address] /Document#: [id number]
[2017-05-27 05:34] LABS: CALCIUM 9.6 mg/dl (8.4-10.2); CREATININE 0.95 mg/dl (0.44-1.00); POTASSIUM 4.2 mmol/L (3.5-5.1)
[2017-05-27 06:00] LABS: BASOPHILS % 0.2 % (0.0-2.0); HEMATOCRIT 35.8 % (37.0-47.0); HEMOGLOBIN 11.6 g/dl (12.0-16.0); LYMPHOCYTES # 1.3 10^3/ul (0.8-2.9); LYMPHOCYTES % 11.1 % (15.0-51.0); MEAN CORPUSCULAR HEMOGLOBIN 31.4 pg (29.0-33.0); MEAN CORPUSCULAR HGB CONC 32.4 g/dl (32.0-37.0); MEAN CORPUSCULAR VOLUME 96.8 fl (82.0-101.0); MEAN PLATELET VOLUME 10.5 fl (7.4-10.4); MONOCYTE # 1.4 10^3/ul (0.3-0.9); MONOCYTES % 11.3 % (0.0-11.0); NEUTROPHIL # 9.1 10^3/ul (1.6-7.5); NEUTROPHILS % 75.3 % (39.0-77.0); PLATELET COUNT 234 10^3/UL (140-415); RED CELL DISTRIBUTION WIDTH 13.2 % (11.5-14.5)
[2017-05-27 07:41] VITALS: BP 145/64; RESP 20
[2017-05-27] MEDS: traMADol-APAP 37.5-325 1 TAB PO PRN ×3 (07:43→18:57)
[2017-05-27] MEDS: DULOXETINE 30 MG CAP DR PO SCH (08:31)
[2017-05-27] MEDS: CALCIUM/VITAMIN D (500/200) TAB GTB SCH ×2 (08:31→20:47)
[2017-05-27] MEDS: METOPROLOL (XL) 25 MG TAB PO SCH (08:32)
[2017-05-27] MEDS: FAMOTIDINE 20 MG INJ IV SCH (08:32)
[2017-05-27] MEDS: CEFTRIAXONE 1 GM/50 ML (PMX) 50 ML IVPB SCH (08:33)
--- NOTE | 2017-05-27 14:25 | RADRPT ---
Vent Rate: 97 bpm RR Interval: 0 msec VA Interval: 140 msec QRS Duration: 82 msec QT Interval: 356 msec QTC Interval: 452 msec P-R-T [place]: 71 - 14 - 64 degrees Normal sinus rhythm Normal ECG Electronically Signed By: Sergio Cardenas [id number]
--- NOTE | 2017-05-27 14:47 | PN ---
Date/Time of Note Date/Time of Note DATE: 05/27/17 TIME: 14:37 Assessment/Plan VTE Prophylaxis VTE Prophylaxis Intervention: SCD's Lines/Catheters IV Catheter Type (from Nrsg): Saline Lock Urinary Cath still in place: No Assessment/Plan Assessment/Plan 86-year-old female with: 1. Severely comminuted and displaced Colles fracture of the right wrist, status post accidental fall at her doctor's office, POD#2 post ORIF. Pain control with Ultracet Follow-up further recommendations from orthopedic surgery, Dr. Lisa if any. Follow-up with orthopedic surgery, Dr. Lisa within 1 week of discharge. 2. Insomnia, according to family previous episode of sleeping pill overdose. Patient and family has agreed to decrease her sleeping pills, still on the Remeron which is scheduled for her and low-dose Xanax as needed. 3. Episode of delirium, postoperatively, likely secondary to anesthesia and also Ambien. Resolved. 4. Hypertension: Continue home medications. 5. Possible urinary tract infection, however UA and urine culture both negative , CBC trending down, likely leukocytosis secondary to demargination. Will discontinue Rocephin at the time of discharge to [facility] facility. 6. Dehydration: Resolved, now euvolemic. 7. GERD: Continue Pepcid 8. Hyperlipidemia: Continue medications 9. MDD/Anxiety disorder: Benzodiazepines as needed. 10. Peripheral neuropathy/osteoarthritis: Patient has been getting cortisone shots but also apparently according to previous notes has been on Neurontin which is discontinued at this time to minimize polypharmacy. Prophylaxis: SCDs to lower extremity for DVT prophylaxis and Pepcid for GI prophylaxis. Disposition: Discharge planning to [facility] facility when bed available, likely within 24 hours. Subjective 24 Hr Interval Summary Free Text/Dictation Patient doing well this morning, mental status much improved, she is on room air , she is ambulating with physical therapy. Since her family will be out of town , discharge planning will be for [facility] facility when bed available. She can be discharged as of today. Exam/Review of Systems Vital Signs Vitals Vital Signs Date Time Temp Pulse Resp B/P Pulse Ox O2 Delivery O2 Flow Rate FiO2 05/27/17 07:41 97.9 72 20 145/64 94 05/27/17 02:54 Room Air 05/25/17 18:45 2.0 05/23/17 19:20 33 Intake and Output 05/26/17 05/26/17 05/27/17 15:00 23:00 07:00 Intake Total 250 ml 550 ml 380 ml Balance 250 ml 550 ml 380 ml Exam Constitutional: alert, oriented, well developed (Elderly) Respiratory: clear to auscultation, normal air movement Cardiovascular: nl pulses, regular rate and rhythm Gastrointestinal: non-tender, soft Musculoskeletal: other (Right upper extremity with soft cast/bandages. 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, nl mental status, nl speech, nl strength Results Result Diagram: 05/27/17 0451 05/27/17 0439 Results 24 hrs Laboratory Tests Test 05/27/17 04:39 05/27/17 04:51 Sodium Level 140 Potassium Level 4.2 Chloride Level 108 Carbon Dioxide Level 23 Anion Gap 13 Blood Urea Nitrogen 31 H Creatinine 0.95 Glucose Level 105 Calcium Level 9.6 White Blood Count 12.0 H Red Blood Count 3.70 L Hemoglobin 11.6 L Hematocrit 35.8 L Mean Corpuscular Volume 96.8 Mean Corpuscular Hemoglobin 31.4 Mean Corpuscular Hemoglobin Concent 32.4 Red Cell Distribution Width 13.2 Platelet Count 234 Mean Platelet Volume 10.5 H Neutrophils % 75.3 Lymphocytes % 11.1 L Monocytes % 11.3 H Eosinophils % 0.0 Basophils % 0.2 Nucleated Red Blood Cells % 0.0 Neutrophils # 9.1 H Lymphocytes # 1.3 Monocytes # 1.4 H Eosinophils # 0.0 Basophils # 0.0 Nucleated Red Blood Cells # 0.0 Magnesium Level 2.2 Medications Medications Current Medications Atorvastatin Calcium (Lipitor) 10 mg QHS PO Last administered on 05/26/17 21: 38; Admin Dose 10 MG; Start 05/23/17 at 21:00 Duloxetine HCl (Cymbalta) 30 mg DAILY PO Last administered on 05/27/17 08:31 ; Admin Dose 30 MG; Start 05/24/17 at 09:00 Mirtazapine (Remeron) 7.5 mg HS PO Last administered on 05/26/17 21:38; Admin Dose 7.5 MG; Start 05/23/17 at 21:00 Ondansetron HCl (Zofran Inj) 4 mg Q6H PRN IV NAUSEA AND/OR VOMITING; Start 05/23/17 at 21:00 Acetaminophen/ Hydrocodone Bitart ([place] (5/325)) 1 tab Q6H PRN PO MODERATE PAIN LEVEL 4-6 Last administered on 05/26/17 10:06; Admin Dose 1 TAB; Start 05/23/17 at 21:00 Docusate Sodium (Colace) 100 mg Q12H PRN PO CONSTIPATION; Start 05/23/17 at 21: 00 Magnesium Hydroxide (Milk Of Mag) 30 ml DAILY PRN PO CONSTIPATION; Start at 21:00 Bisacodyl (Dulcolax Supp) 10 mg DAILY PRN [place] CONSTIPATION; Start 05/23/17 at 21 :00 Famotidine (Pepcid Iv) 20 mg DAILY IV Last administered on 05/27/17 08:32; Admin Dose 20 MG; Start 05/23/17 at 21:00 Calcium/Vitamin D (Oyster Shell/ Vit-D (500/200)) 1 tab BID GTB Last administered on 05/27/17 08:31; Admin Dose 1 TAB; Start 05/23/17 at 21:00 Hydralazine HCl 10 mg 10 mg Q6H PRN IV ELEVATED BLOOD PRESSURE Last administered on 05/24/17 17:14; Admin Dose 10 MG; Start 05/24/17 at 09:00 Ceftriaxone Sodium (Rocephin) 50 ml @ 100 mls/hr Q24H IVPB Last administered on 05/27/17 08:33; Admin Dose 100 MLS/HR; Start 05/24/17 at 09:00 Metoprolol Succinate (Toprol Xl) 12.5 mg DAILY PO Last administered on 08:32; Admin Dose 12.5 MG; Start 05/24/17 at 11:00 Lorazepam (Ativan) 0.5 mg Q8H PRN PO ANXIETY; Start 05/24/17 at 10:30 Acetaminophen (Tylenol Tab) 650 mg Q4H PRN PO PAIN AND OR ELEVATED TEMP Last administered on 05/25/17 01:21; Admin Dose 650 MG; Start 05/24/17 at 15:30 Miscellaneous Information Patients own medicat... BID@ XX ; Start at 10:00 Tramadol HCl (Ultracet) 1 tab Q6H PRN PO PAIN LEVEL 6-10 Last administered on 05/27/17 13:21; Admin Dose 1 TAB; Start 05/26/17 at 13:00 Alprazolam (Xanax) 0.25 mg QHS PRN PO INSOMNIA Last administered on 05/27/17 00:13; Admin Dose 0.25 MG; Start 05/26/17 at 13:30 RYAN MCKEON May 27, 2017 14:47
--- NOTE | 2017-05-27 14:51 | PDOCDIS ---
Discharge Instructions CONDITION Patient Condition: Stable HOME CARE INSTRUCTIONS: Diet Instructions: 2gm Na ACTIVITY: Activity Restrictions: Slowly Increase Activity FOLLOW UP/APPOINTMENTS Follow-up Plan Follow-up with primary care physician after discharge from shelter facility Follow-up with Dr. Lisa within 7-10 days RYAN MCKEON May 27, 2017 14:51
[2017-05-27 15:19] VITALS: BP 139/59; RESP 20
[2017-05-27 20:46] VITALS: BP 149/67; PULSE 80; RESP 16
[2017-05-27 20:47] VITALS: BP 160/70; RESP 18
[2017-05-27] MEDS: ATORVASTATIN 10 MG TAB PO SCH (20:47)
[2017-05-27] MEDS: MIRTAZAPINE 15 MG TAB PO SCH (20:48)
[2017-05-27] MEDS ORDERED: LOSARTAN 50 MG TAB PO SCH (21:00)
[2017-05-28 01:45] VITALS: BP 144/68; RESP 18
[2017-05-28 05:08] LABS: BASOPHILS % 0.3 % (0.0-2.0); EOSINOPHILS % 0.1 % (0.0-7.0); HEMATOCRIT 35.8 % (37.0-47.0); HEMOGLOBIN 11.9 g/dl (12.0-16.0); LYMPHOCYTES # 1.6 10^3/ul (0.8-2.9); LYMPHOCYTES % 14.5 % (15.0-51.0); MEAN CORPUSCULAR HGB CONC 33.2 g/dl (32.0-37.0); MEAN CORPUSCULAR VOLUME 96.2 fl (82.0-101.0); MEAN PLATELET VOLUME 11.4 fl (7.4-10.4); MONOCYTE # 1.4 10^3/ul (0.3-0.9); MONOCYTES % 12.7 % (0.0-11.0); NEUTROPHIL # 7.6 10^3/ul (1.6-7.5); PLATELET COUNT 197 10^3/UL (140-415); RED BLOOD COUNT 3.72 10^6/ul (4.20-5.40); RED CELL DISTRIBUTION WIDTH 13.1 % (11.5-14.5); WHITE BLOOD COUNT 11.2 10^3/ul (4.8-10.8)
[2017-05-28 05:33] LABS: CALCIUM 9.9 mg/dl (8.4-10.2); CREATININE 0.92 mg/dl (0.44-1.00); POTASSIUM 4.4 mmol/L (3.5-5.1)
[2017-05-28 05:42] LABS: POSITIVE DIFF @See below
[2017-05-28 07:43] VITALS: BP 185/81; RESP 20
[2017-05-28] MEDS: traMADol-APAP 37.5-325 1 TAB PO PRN (07:46)
[2017-05-28] MEDS: DULOXETINE 30 MG CAP DR PO SCH (08:12)
[2017-05-28] MEDS: CALCIUM/VITAMIN D (500/200) TAB GTB SCH (08:12)
[2017-05-28] MEDS: FAMOTIDINE 20 MG INJ IV SCH (08:12)
[2017-05-28 08:13] VITALS: BP 139/64; PULSE 80
[2017-05-28] MEDS: METOPROLOL (XL) 25 MG TAB PO SCH (08:13)
--- NOTE | 2017-05-28 08:16 | PN ---
DATE: SUBJECTIVE DATA: First postop day, afebrile. Postop x-ray shows satisfactory alignment of the fracture with proper position of the fixation K-wires. Okay to be [facility] for further follow-up as an outpatient. Dictated By: In Sonya Lisa MD /[email or web address] /Document#: [id number]
[2017-05-28] MEDS: CEFTRIAXONE 1 GM/50 ML (PMX) 50 ML IVPB SCH (08:17)
--- NOTE | 2017-05-28 10:02 | PN ---
Date/Time of Note Date/Time of Note DATE: 05/28/17 TIME: 09:57 Assessment/Plan VTE Prophylaxis VTE Prophylaxis Intervention: SCD's Lines/Catheters IV Catheter Type (from Nrsg): Saline Lock Urinary Cath still in place: No Assessment/Plan Assessment/Plan 86-year-old female with: 1. Severely comminuted and displaced Colles fracture of the right wrist, status post accidental fall at her doctor's office, POD#3 post ORIF. Pain control with Ultracet Appreciate recommendations from orthopedic surgery, Dr. Lisa. Follow-up with orthopedic surgery, Dr. Lisa within 1 week of discharge. 2. Insomnia, according to family previous episode of sleeping pill overdose. Patient and family has agreed to decrease her sleeping pills, doing well on Remeron which is scheduled and low-dose Xanax as needed. 3. Episode of delirium, postoperatively, likely secondary to anesthesia and also Ambien. Resolved. 4. Hypertension: Continue home medications. 5. Possible urinary tract infection, however UA and urine culture both negative , CBC trending down, likely leukocytosis secondary to demargination. Will discontinue Rocephin today. 6. Dehydration: Resolved, now euvolemic. 7. GERD: Continue Pepcid 8. Hyperlipidemia: Continue medications 9. MDD/Anxiety disorder: Benzodiazepines as needed. 10. Peripheral neuropathy/osteoarthritis: Patient has been getting cortisone shots but also apparently according to previous notes has been on Neurontin which is discontinued at this time to minimize polypharmacy. Prophylaxis: SCDs to lower extremity for DVT prophylaxis and Pepcid for GI prophylaxis. Disposition: Discharge to SNF today with outpatient follow up with Dr Lisa w/i 1 week. Subjective 24 Hr Interval Summary Free Text/Dictation Patient remains stable and awaiting SNF bed. To be discharged today as bed available Appreciate recs for Dr Lisa Exam/Review of Systems Vital Signs Vitals Vital Signs Date Time Temp Pulse Resp B/P Pulse Ox O2 Delivery O2 Flow Rate FiO2 05/28/17 08:13 80 139/64 05/28/17 07:43 98.0 20 99 05/27/17 20:46 Room Air 05/25/17 18:45 2.0 Intake and Output 05/27/17 05/27/17 05/28/17 14:59 22:59 06:59 Intake Total 50 ml 700 ml 200 ml Output Total 600 ml 550 ml Balance 50 ml 100 ml -350 ml Exam Constitutional: alert, oriented, well developed Respiratory: clear to auscultation, normal air movement Cardiovascular: nl pulses, regular rate and rhythm Gastrointestinal: non-tender, soft Musculoskeletal: other (RUE in sorf cast and dressing, less edema and ecchymosis ) Extremities: normal pulses, other (improving edema and ecchymosis right UE ) Neurological: COLLISION MECHANIC II-XII intact, nl mental status (at baseline ), nl speech, nl strength (at baseline ) Results Result Diagram: 05/28/1743205/28/17432 Results 24 hrs Laboratory Tests Test 05/28/17 04:33 White Blood Count 11.2 H Red Blood Count 3.72 L Hemoglobin 11.9 L Hematocrit 35.8 L Mean Corpuscular Volume 96.2 Mean Corpuscular Hemoglobin 32.0 Mean Corpuscular Hemoglobin Concent 33.2 Red Cell Distribution Width 13.1 Platelet Count 197 Mean Platelet Volume 11.4 H Neutrophils % 68.0 Lymphocytes % 14.5 L Monocytes % 12.7 H Eosinophils % 0.1 Basophils % 0.3 Nucleated Red Blood Cells % 0.0 Neutrophils # 7.6 H Lymphocytes # 1.6 Monocytes # 1.4 H Eosinophils # 0.0 Basophils # 0.0 Nucleated Red Blood Cells # 0.0 Sodium Level 141 Potassium Level 4.4 Chloride Level 108 Carbon Dioxide Level 25 Anion Gap 12 Blood Urea Nitrogen 30 H Creatinine 0.92 Glucose Level 100 Calcium Level 9.9 Medications Medications Current Medications Atorvastatin Calcium (Lipitor) 10 mg QHS PO Last administered on 05/27/17 20: 47; Admin Dose 10 MG; Start 05/23/17 at 21:00 Duloxetine HCl (Cymbalta) 30 mg DAILY PO Last administered on 05/28/17 08:12 ; Admin Dose 30 MG; Start 05/24/17 at 09:00 Mirtazapine (Remeron) 7.5 mg HS PO Last administered on 05/27/17 20:48; Admin Dose 7.5 MG; Start 05/23/17 at 21:00 Ondansetron HCl (Zofran Inj) 4 mg Q6H PRN IV NAUSEA AND/OR VOMITING; Start 05/23/17 at 21:00 Docusate Sodium (Colace) 100 mg Q12H PRN PO CONSTIPATION; Start 05/23/17 at 21: 00 Magnesium Hydroxide (Milk Of Mag) 30 ml DAILY PRN PO CONSTIPATION; Start at 21:00 Bisacodyl (Dulcolax Supp) 10 mg DAILY PRN [place] CONSTIPATION; Start 05/23/17 at 21 :00 Famotidine (Pepcid Iv) 20 mg DAILY IV Last administered on 05/28/17 08:12; Admin Dose 20 MG; Start 05/23/17 at 21:00 Calcium/Vitamin D (Oyster Shell/ Vit-D (500/200)) 1 tab BID GTB Last administered on 05/28/17 08:12; Admin Dose 1 TAB; Start 05/23/17 at 21:00 Hydralazine HCl 10 mg 10 mg Q6H PRN IV ELEVATED BLOOD PRESSURE Last administered on 05/24/17 17:14; Admin Dose 10 MG; Start 05/24/17 at 09:00 Ceftriaxone Sodium (Rocephin) 50 ml @ 100 mls/hr Q24H IVPB Last administered on 05/28/17 08:17; Admin Dose 100 MLS/HR; Start 05/24/17 at 09:00 Metoprolol Succinate (Toprol Xl) 12.5 mg DAILY PO Last administered on 08:13; Admin Dose 12.5 MG; Start 05/24/17 at 11:00 Lorazepam (Ativan) 0.5 mg Q8H PRN PO ANXIETY; Start 05/24/17 at 10:30 Acetaminophen (Tylenol Tab) 650 mg Q4H PRN PO PAIN AND OR ELEVATED TEMP Last administered on 05/25/17 01:21; Admin Dose 650 MG; Start 05/24/17 at 15:30 Miscellaneous Information Patients own medicat... BID@10,16 XX ; Start at 10:00 Tramadol HCl (Ultracet) 1 tab Q6H PRN PO PAIN LEVEL 6-10 Last administered on 05/28/17 07:46; Admin Dose 1 TAB; Start 05/26/17 at 13:00 Alprazolam (Xanax) 0.25 mg QHS PRN PO INSOMNIA Last administered on 05/27/17 21:33; Admin Dose 0.25 MG; Start 05/26/17 at 13:30 Losartan Potassium (Cozaar) 50 mg QHS PO Last administered on 05/27/17t 20:48 ; Admin Dose 50 MG; Start 05/27/17 at 21:00 RYAN MCKEON May 28, 2017 10:02
--- NOTE | 2017-05-28 13:54 | DS ---
DATE OF ADMISSION: 05/25/2017 DATE OF DISCHARGE: 05/28/2017 ADMITTING PHYSICIAN: Dr. Gunn DISCHARGING PHYSICIAN: Dr. Kaur CONSULTANTS DURING THIS ADMISSION: Dr. Lisa from orthopedic surgery. CHIEF COMPLAINT ON ADMISSION: Status post fall with right wrist pain. BRIEF HISTORY OF PRESENT ILLNESS: This is an 86-year-old female who apparently fell at her doctor's office and sustained injury to her right wrist and right forearm. She was brought over to the doctors hospital department for further evaluation. HOSPITAL COURSE: The patient in the emergency department was found to have severe comminuted displa ricki Colles fracture of the right wrist, which was also open. The patient was admitted to a medical/ surgical bed for orthopedic surgery intervention. Dr. Martínez evaluated the patient and took her to the operating room on 05/25/2017. The patient had manipulative reduction of the severely co mminuted Colles fracture of the right wrist and stabilization with K-wire fixation. Postoperatively , she was admitted back to medical/surgical bed. On postoperative day #1, she was noted to be delir ious and disoriented, also apparently she received a dose of Ambien that night on top of coming out of anesthesia. Within 24 hours, her delirium resolved. The patient is stable. She is ambulatory. She has significant bruise as on her right upper extremity since the fall, but it is improving. Th e ecchymosis is improving. The patient's mental status is much improved and back to her baseline. After discussion with the family, her Neurontin was discontinued along with some of the sleeping pil ls she has been taking. She is down to Remeron and Xanax p.r.n. for sleep. The family will not be around and the patient does need help for now. Therefore, she will be discharged to [facility] facility. DISPOSITION: Discharged to [facility] facility. DISCHARGE CONDITION: Stable. DISCHARGE DIET: A low-sodium diet. DISCHARGE ACTIVITY: As tolerated. FOLLOWUP: 1. The patient is to follow up with her primary care physician after discharge from [facility] facility. 2. Follow up with Dr. Lisa, orthopedic surgery within 7 to 10 days. DISCHARGE DIAGNOSES: 1. Severely comminuted and displaced Colles fracture of the right wrist status post accidental fall at her doctor's office apparently. She is postoperative day #3 post open reduction internal fixati on. 2. Chronic insomnia. 3. Episode of delirium, resolved. 4. Dehydration. 5. Gastroesophageal reflux disease. 6. Hyperlipidemia. 7. Major depressive disorder, anxiety disorder. 8. Osteoarthritis/peripheral neuropathy. 9. Questionable urinary tract infection and a negative UA and urine culture off antibiotics. DISCHARGE MEDICATIONS: 1. Tylenol 650 mg p.o. every 4 hours as needed. 2. Xanax 0.25 mg p.o. at bedtime as needed for insomnia. 3. Atorvastatin 10 mg p.o. at bedtime. 4. Dulcolax suppository 10 mg daily as needed for constipation. 5. Calcium vitamin D 1 tab p.o. twice daily. 6. Colace 100 mg p.o. b.i.d. as needed for constipation. 7. Cymbalta 30 mg p.o. daily. 8. Milk of magnesia 30 mL p.o. t.i.d. as needed. 9. Toprol-XL 12.5 mg p.o. daily. 10. Remeron 7.5 mg p.o. at bedtime. 11. Ultracet one tab p.o. every 6 hours as needed for pain. 12. Losartan 50 mg p.o. at bedtime. 13. Protonix 20 mg p.o. daily. Dictated By: RYAN DAVIS/MAGDALENA Conf#: [id number] DID#: [id number] CC: CLARK GUNN MD;*EndCC*
== END 2017-05-28 15:15 | DRG 511 ==
LOC: E/R 15:54 → MS1 20:32 → OBSVTOIN 05-25 13:26
PROVIDERS: ADMIT Hospitalist; ATTEND Hospitalist
PROC: 0PSHXZZ Reposition Right Radius, External Approach (ICD-10-PCS; 2017-05-23)
PROC: 0PSKXZZ Reposition Right Ulna, External Approach (ICD-10-PCS; 2017-05-23)
PROC: 0PSK34Z Reposition Right Ulna with Internal Fixation Device, Percutaneous Approach (ICD-10-PCS; 2017-05-25)
PROC: 0PSH34Z Reposition Right Radius with Internal Fixation Device, Percutaneous Approach (ICD-10-PCS; principal; 2017-05-25 13:30)
DX: S52.531B Colles' fracture of right radius, initial encounter for open fracture type I or II (principal); N39.0 Urinary tract infection, site not specified; G62.9 Polyneuropathy, unspecified; S41.111A Laceration without foreign body of right upper arm, initial encounter; E86.0 Dehydration; I10 Essential (primary) hypertension; K21.9 Gastro-esophageal reflux disease without esophagitis; F41.9 Anxiety disorder, unspecified; G47.00 Insomnia, unspecified; F32.9 Major depressive disorder, single episode, unspecified; E78.5 Hyperlipidemia, unspecified; M19.90 Unspecified osteoarthritis, unspecified site; E78.00 Pure hypercholesterolemia, unspecified; R41.0 Disorientation, unspecified; W19.XXXA Unspecified fall, initial encounter; Y92.59 Other trade areas as the place of occurrence of the external cause
CPT/HCPCS: 71010; 72110; 73100; 80048; 80053; 81001; 82306; 83735; 84436; 84479; 85025; 85610; 85730; 86850; 86900; 86901; 86920; 87086; 93005; 94770; 96361; 96365; 96375; 97116; 97162; C1713; G0378; J0360; J0690; J0696; J1100; J2250; J2270; J2405; J2795; J3010; J7030; J7040; J7042